=== PATIENT | female | born 1965 | race Caucasian/White ===

== ENCOUNTER 2019-12-13 15:35 | Inpatient (IN) | payer OTHER, SELFPAY ==
[2019-12-13 15:41] VITALS: BP 154/103; PULSE 113; RESP 16; TEMP 36.9; O2SAT 98; BMI 23.1
--- NOTE | 2019-12-13 17:29 | CT_ITS ---
EXAMINATION: CT ABDOMEN AND PELVIS WITH CONTRAST CLINICAL INFORMATION: Abdominal pain with purulent drainage from rectum. COMPARISON: None TECHNIQUE: Multidetector volumetric images were obtained from the superior aspect of the liver through the pubic symphysis following administration 85 mL of Omnipaque 350 intravenous contrast. Sagittal and coronal reformatted images were obtained on the technologist's workstation. Oral Contrast: No. This CT examination was performed using dose optimization techniques as appropriate, variously including the following: *Automated exposure control. *Adjustment of mA and/or kV according to patient size (this includes techniques or standardized protocols for targeted exams where dose is matched to indication/reason for exam; i.e. extremities or head). *Use of iterative reconstruction technique. DLP: 449 mGy-cm FINDINGS: LUNG BASES: Scarring is present at the lung bases. LIVER, GALLBLADDER, AND BILIARY TREE: The liver is normal in size, shape, and attenuation. Small cysts are noted in the left lobe of the liver. No worrisome solid focal hepatic lesion or biliary ductal dilatation is present. The gallbladder is unremarkable with no evidence of radiopaque gallstones, gallbladder wall thickening, or obvious pericholecystic inflammatory changes. PANCREAS: Unremarkable. SPLEEN: Unremarkable. ADRENAL GLANDS: There is a small 8.7 mm nodule involving the left adrenal gland without change. KIDNEYS AND URETERS: The kidneys are normal in size, shape, and attenuation. Tiny renal cysts are present. No hydronephrosis, hydroureter, or calculi seen. No perinephric stranding. BLADDER: Unremarkable. GASTROINTESTINAL TRACT: The rectum is significantly distended with stool when compared to the prior study and there is some inflammatory changes around the rectum suggesting possible stercoral colitis. No perirectal abscess or fistula is seen. Large and small bowel are otherwise unremarkable. No evidence of appendicitis. ABDOMINAL WALL: No significant hernia is appreciated. LYMPH NODES: Normal. VASCULAR: Atherosclerotic plaque present in the aorta but no evidence of AAA. PELVIC VISCERA: Status post hysterectomy. OSSEOUS STRUCTURES: Unremarkable. IMPRESSION: 1. Since the prior study, the rectosigmoid now appears more distended with stool and there is some minimal inflammatory change around the rectum suggesting stercoral colitis. No evidence of a perirectal abscess or fistula. 2. Unchanged tiny liver and renal cysts. 3. Unchanged tiny left adrenal nodule. 4. Status post hysterectomy.
--- NOTE | 2019-12-13 17:32 | XR_ITS ---
EXAMINATION: XR CHEST CLINICAL INFORMATION: Abdominal pain COMPARISON: 11/15/2019 TECHNIQUE: Frontal view of the chest was obtained. FINDINGS: No focal consolidation, pulmonary edema, or pleural effusion. Stable cardiomediastinal silhouette. IMPRESSION: Unremarkable examination.
--- NOTE | 2019-12-13 17:32 | ECG_ITS ---
Test Reason : ABDOMINAL PAIN Blood Pressure : / mmHG Vent. Rate : 091 BPM Atrial Rate : 091 BPM P-R Int : 158 ms QRS Dur : 084 ms QT Int : 358 ms P-R-T Axes : 066 045 023 degrees QTc Int : 440 ms Normal sinus rhythm Normal ECG When compared with ECG of 15-NOV-2019 19:36, No significant change was found Referred By: Ibeth Peña Electronically Signed By:JOHN CRUZ MD
--- NOTE | 2019-12-13 18:01 | ED_ITS ---
HPI - Abdominal Pain General Chief Complaint: Abdominal Pain Stated Complaint: LOWER ABDOMINAL/ANAL PAIN S/P HEMORRHOIDECTOMY Time Seen by Provider: 12/13/19 17:29 Source: patient Mode of arrival: ambulatory Limitations: no limitations History of Present Illness HPI narrative: 54-year-old female presents with rectal pain, purulent drainage per rectum, abdominal pain, constipation without bowel movement since December 30, difficulty voiding, weakness, and anxiety. She reports having hemorrhoidectomy at [facility] on December 30, and states that she has not felt well since. She is having a difficult time eating and drinking, has 10/10 pain, and reports that she needs to stand to urinate. She does not describe chest pain or pressure, palpitations, shortness of breath, fevers, edema, falls or trauma. She does not report any rectal Or vaginal bleeding. MD elicited complaint: abdominal pain Pertinent past history: constipation Onset (ago): day(s) ( Twelve days) Pain Consistency: constant Location: RLQ, LLQ, L flank, R flank, suprapubic, pelvis, groin and other ( rectum) Severity: severe Pain scale (0-10): 10 Quality: cramping, aching, fullness and burning Exacerbating factors: movement Relieving factors: nothing Context: recent surgery/procedure ( hemorrhoidectomy) Associated symptoms: nausea, constipation and anorexia Related Data Home Medications Medication Instructions Recorded Confirmed amlodipine 5 mg tablet 5 mg PO DAILY 12/06/19 12/13/19 cyclobenzaprine 10 mg tablet 10 mg PO DAILY PRN 12/06/19 12/13/19 diazepam 5 mg tablet 5 mg PO NEEDED PRN 12/06/19 12/13/19 docusate sodium 100 mg capsule 100 mg PO BID PRN 12/06/19 12/13/19 oxycodone 5 mg tablet 5 mg PO NEEDED PRN 12/06/19 12/13/19 rosuvastatin 20 mg tablet 20 mg PO BEDTIME 12/06/19 12/13/19 sennosides 8.6 mg tablet 17.2 mg PO DAILY 12/06/19 12/13/19 sucralfate 1 gram tablet 1 g PO QID 12/06/19 12/13/19 sucralfate 1 tab PO QID 12/13/19 12/13/19 Allergies Allergy/AdvReac Type Severity Reaction Status Date / Time acetaminophen [From TYLENOL] Allergy Unknown GI BLEED Verified 12/13/19 19:19 diazepam [Valium] Allergy Unknown unknown Verified 12/06/19 09:16 NSAIDS (Non-Steroidal Allergy Unknown UNK Verified 12/13/19 19:19 Anti-Inflamma [NSAIDS (NON-STEROIDAL ANTI-INFLAMMA] Penicillins [PENICILLINS] Allergy Unknown DIFF Verified 12/13/19 19:19 BREATHING zolpidem [From AMBIEN] Allergy Unknown HALLUCINATI Verified 12/13/19 19:19 ONS Review of Systems Review of Systems Constitutional: positive fatigue and malaise No Weight loss, No Fever, No Chills, No Night Sweats ENT/Mouth: No Hearing loss, No Ear Pain, No Nasal Congestion, No Sinus Pain, No Hoarseness, No sore throat, No Rhinorrhea, No Swallowing Difficulty Eyes: No Eye Pain, No Swelling, No Redness, No Foreign Body, No Discharge, No Vision Changes Cardiovascular: No Chest Pain, No SOB, No Dyspnea on Exertion, No Orthopnea, No Edema, No Palpitations Respiratory: No Cough, No Sputum, No Wheezing, No Smoke Exposure, No Dyspnea Gastrointestinal: Positive Nausea, positive abdominal Pain, No Hematochezia, No Melena Genitourinary: constipation for 12 days, purulent rectal discharge, poor urinary flow, no irregular bleeding, No Hematuria, No Urinary Incontinence Musculoskeletal: No joint pain, No Myalgias, No Joint Swelling Skin: No Skin Lesions, No rash Neuro: positive Weakness, No Numbness, No Paresthesias, No Loss of Consciousness, No Dizziness, No Headache Psych: No Anxiety/Panic, No Depression, No SI/HI/AH/VH, No Social Issues, Heme/Lymph: No Bruising, No Bleeding,No Lymphadenopathy Endocrine: No Polyuria, No Polydipsia, No Temperature Intolerance Physical Exam Vital Signs: Vital Signs: Vital Signs Temp Pulse Resp BP Pulse Ox 12/13/19 22:00 98.7 F 85 16 127/74 98 12/13/19 20:00 97.8 F 88 16 117/84 100 12/13/19 19:33 12 12/13/19 19:10 98.6 F 88 14 139/81 98 12/13/19 15:41 98.5 F 113 H 16 154/103 H 98 Body Mass Index 23.1 Appearance: Alert. Oriented X3. moderate distress, 10/10 pain. Eyes: Pupils equal, round and reactive to light. ENT: Pharynx normal. Neck: Normal inspection. Neck supple. CVS: Normal heart rate and rhythm. Pulses normal. Respiratory: No respiratory distress. Breath sounds normal. Abdomen: hard, distended, tender to palpation diffusely. : Purulent drainage per rectum, sutures visible at the dentate line no bleeding noted tender to touch digital rectal exam not completed at this time secondary to pain Skin: pallor, Skin warm and dry. Normal skin color. Normal skin turgor. Extremities: No lower extremity edema. No lower extremity edema. Neuro: Oriented X 3. No motor deficit. No sensory deficit. Course Course Course Narrative: patient is 12 days postop for hemorrhoidectomy. Visual rectal exam completed, purulent drainage noted from rectum with visible sutures. digital exam was not completed at this time. Abdomen is distended, consistent with patient's report of not having a bowel movement for 12 days. Levaquin and Flagyl given, fluid resuscitation, CT scan of the abdomen is pending. Reevaluation(s) Reevaluation #1: EJ placed By this HIGH TENSION TESTER as she Is a poor IV start.. Time: 18:15 Reevaluation #2: CT scan shows colitis, no indication of abscess or free air in the pelvis, moderate fecal load where troponin is negative, lactic acid is 0.7. Discussed this case with hospitalist, plan of care is to admit for colitis, pain management. Time: 21:20 Consultations Consultation #1: Poppy Time: 21:20 MDM - Abdominal Pain Differential Diagnosis Differential diagnosis: Likely abdominal pain, bowel perforation, constipation, diverticulitis, mesenteric ischemia and small bowel obstruction Differential diagnosis narrative:: Rectal abscess, abdominal abscess Medical Records Attestation: I reviewed the patient's medical records. Lab Data Attestation: I reviewed the patient's lab results. Result diagrams: 12/13/19 18:26 12/13/19 18: Labs: Lab Results 12/13/19 12/13/19 12/13/19 Range/Units 18:26 18:26 18:27 WBC 6.9 (4.8-10.8) X10*3/uL RBC 3.41 L (4.20-5.50) X10*6/uL Hgb 8.5 L (12.0-16.0) g/dl Hct 27.2 L (37-47) % MCV 79.8 L (80-98) fL MCH 24.9 L (27.0-33.0) pg MCHC 31.3 (31.0-35.0) g/dl RDW 16.9 H (11.0-16.0) % Plt Count 484 H (160-400) X10*3/uL MPV 8.3 L (9.4-12.3) fL Immature Gran % (Auto) 0.3 (0.0-0.4) % Neut % (Auto) 52.7 (45-73) % Lymph % (Auto) 38.0 (20-40) % [place] % (Auto) 6.6 (2-11) % Eos % (Auto) 2.0 (0-4) % Baso % (Auto) 0.4 (0-2) % Lymph # (Auto) 2.6 (1.2-4.9) X10*3/uL [place] # (Auto) 0.5 (0.1-1.2) X10*3/uL Eos # (Auto) 0.1 (0.0-0.4) X10*3/uL Baso # (Auto) 0.0 (0.0-0.2) X10*3/uL Abs Immat Gran (auto) 0.02 (0.00-0.03) X10*3/uL Absolute Neuts (auto) 3.7 (2.0-8.3) X10*3/uL Absolute Nucleated RBC 0.000 (0.0-0.012) X10*3/uL Nucleated RBC % (auto) 0.0 (0.0-0.2) /100WBC PT 13.0 (10.8-13.0) SEC INR 1.1 (0.9-1.1) Sodium (135-145) mmol/L Potassium (3.3-5.1) mmol/l Chloride (96-108) mmol/L Carbon Dioxide (22-29) mmol/L Anion Gap (12-20) BUN (9-16) mg/dL Creatinine (0.5-1.4) mg/dL Estim Creat Clear Calc Estimated GFR Random Glucose (60-115) mg/dL Lactic Acid (0.5-2.0) mmol/L Calcium 8.6 (8.4-10.2) mg/dL Magnesium 2.2 (1.6-2.6) mg/dL Total Bilirubin (0.0-1.0) mg/dL Direct Bilirubin (0.0-0.5) mg/dL AST (5-31) U/L ALT (0-31) U/L Alkaline Phosphatase (39-117) U/L Troponin I High Sens (<3.5-17.0) ng/L Total Protein (6.5-8.0) g/dL Albumin (3.5-5.0) g/dL Lipase (8-78) U/L 12/13/19 12/13/19 12/13/19 Range/Units 18:27 18:27 18:27 WBC (4.8-10.8) X10*3/uL RBC (4.20-5.50) X10*6/uL Hgb (12.0-16.0) g/dl Hct (37-47) % MCV (80-98) fL MCH (27.0-33.0) pg MCHC (31.0-35.0) g/dl RDW (11.0-16.0) % Plt Count (160-400) X10*3/uL MPV (9.4-12.3) fL Immature Gran % (Auto) (0.0-0.4) % Neut % (Auto) (45-73) % Lymph % (Auto) (20-40) % [place] % (Auto) (2-11) % Eos % (Auto) (0-4) % Baso % (Auto) (0-2) % Lymph # (Auto) (1.2-4.9) X10*3/uL [place] # (Auto) (0.1-1.2) X10*3/uL Eos # (Auto) (0.0-0.4) X10*3/uL Baso # (Auto) (0.0-0.2) X10*3/uL Abs Immat Gran (auto) (0.00-0.03) X10*3/uL Absolute Neuts (auto) (2.0-8.3) X10*3/uL Absolute Nucleated RBC (0.0-0.012) X10*3/uL Nucleated RBC % (auto) (0.0-0.2) /100WBC PT (10.8-13.0) SEC INR (0.9-1.1) Sodium 141 (135-145) mmol/L Potassium 3.7 (3.3-5.1) mmol/l Chloride 104 (96-108) mmol/L Carbon Dioxide 26 (22-29) mmol/L Anion Gap 15 (12-20) BUN 14 (9-16) mg/dL Creatinine 0.73 (0.5-1.4) mg/dL Estim Creat Clear Calc 74.3 Estimated GFR > 60 Random Glucose 93 (60-115) mg/dL Lactic Acid 0.7 (0.5-2.0) mmol/L Calcium 8.5 (8.4-10.2) mg/dL Magnesium (1.6-2.6) mg/dL Total Bilirubin 0.2 (0.0-1.0) mg/dL Direct Bilirubin < 0.2 (0.0-0.5) mg/dL AST 20 (5-31) U/L ALT 16 (0-31) U/L Alkaline Phosphatase 104 (39-117) U/L Troponin I High Sens < 3.5 (<3.5-17.0) ng/L Total Protein 6.5 (6.5-8.0) g/dL Albumin 3.8 (3.5-5.0) g/dL Lipase 27 (8-78) U/L Imaging Data CT scan - abdomen: Attestation: I personally reviewed and interpreted this imaging study as follows: Radiologist's impression: FINDINGS: LUNG BASES: Scarring is present at the lung bases. LIVER, GALLBLADDER, AND BILIARY TREE: The liver is normal in size, shape, and attenuation. Small cysts are noted in the left lobe of the liver. No worrisome solid focal hepatic lesion or biliary ductal dilatation is present. The gallbladder is unremarkable with no evidence of radiopaque gallstones, gallbladder wall thickening, or obvious pericholecystic inflammatory changes. PANCREAS: Unremarkable. SPLEEN: Unremarkable. ADRENAL GLANDS: There is a small 8.7 mm nodule involving the left adrenal gland without change. KIDNEYS AND URETERS: The kidneys are normal in size, shape, and attenuation. Tiny renal cysts are present. No hydronephrosis, hydroureter, or calculi seen. No perinephric stranding. BLADDER: Unremarkable. GASTROINTESTINAL TRACT: The rectum is significantly distended with stool when compared to the prior study and there is some inflammatory changes around the rectum suggesting possible stercoral colitis. No perirectal abscess or fistula is seen. Large and small bowel are otherwise unremarkable. No evidence of appendicitis. ABDOMINAL WALL: No significant hernia is appreciated. LYMPH NODES: Normal. VASCULAR: Atherosclerotic plaque present in the aorta but no evidence of AAA. PELVIC VISCERA: Status post hysterectomy. OSSEOUS STRUCTURES: Unremarkable. IMPRESSION: 1. Since the prior study, the rectosigmoid now appears more distended with stool and there is some minimal inflammatory change around the rectum suggesting stercoral colitis. No evidence of a perirectal abscess or fistula. 2. Unchanged tiny liver and renal cysts. 3. Unchanged tiny left adrenal nodule. 4. Status post hysterectomy. Chest x-ray: Attestation: I personally reviewed and interpreted this imaging study as f rayna: Radiologist's impression: TECHNIQUE: Frontal view of the chest was obtained. FINDINGS: No focal consolidation, pulmonary edema, or pleural effusion. Stable cardiomediastinal silhouette. IMPRESSION: Unremarkable examination. ECG Data Attestation: I personally reviewed and interpreted this ECG as follows: ECG interpretation date: 12/13/19 ECG interpretation time: 17:57 Prior ECG tracings: available for review Interpretation: Vent. Rate : 091 BPM Atrial Rate : 091 BPM P-R Int : 158 ms QRS Dur : 084 ms QT Int : 358 ms P-R-T Axes : 066 045 023 degrees QTc Int : 440 ms Normal sinus rhythm Normal ECG When compared with ECG of 15-NOV-2019 19:36, No significant change was found Critical Care Time Critical Care Time Critical Care Time: Yes Total Critical Care Time: 60 Attestation: I have personally provided critical care time exclusive of time spent on separately billable procedures. Time includes review of laboratory data, radiology results, discussion with consultants, and monitoring for potential decompensation. Interventions were performed as documented. Discharge Plan Discharge Clinical Impression: Colitis Constipation Qualifiers: Constipation type: other constipation type Qualified Code(s): K59.09 - Other constipation Patient Disposition: Admitted As Inpatient [facility] Past Medical History Attestation statement: The following information was validated with the patient. Medical History Adhesion, postoperative Duodenal ulcer Surgical History H/O cardiac catheterization H/O cervical spinal arthrodesis H/O colonoscopy H/O esophagogastroduodenoscopy H/O hemorrhoidectomy History of appendectomy History of heart artery stent Family History Family History (Updated 12/12/19 @ 17:16 by URIEL Lazo) Father CAD (coronary artery disease) Lung cancer NIDDY (non-insulin dependent diabetes mellitus in young) Mother No problems noted. Brother Myocardial infarction Social History Social History Alcohol intake: never Smoking Status: Current every day smoker Use of substances other than those prescribed or required for medical reasons: No Advance Directives: No Advance Directives Information Provided: Yes
[2019-12-13 18:37] LABS: MANUAL DIFF FLAG NO
[2019-12-13 18:39] LABS: Basophils Percent Auto 0.4 % (0-2); Eosinophils Absolute Auto 0.1 X10*3/uL (0.0-0.4); Hematocrit 27.2 % (37-47); Hemoglobin 8.5 g/dl (12.0-16.0); Imm Gran Abs Auto 0.02 X10*3/uL (0.00-0.03); Imm Gran Pct Auto 0.3 % (0.0-0.4); Lymphocytes Absolute Auto 2.6 X10*3/uL (1.2-4.9); Mean Corpuscular HGB Conc 31.3 g/dl (31.0-35.0); Mean Corpuscular Hemoglobin 24.9 pg (27.0-33.0); Mean Corpuscular Volume 79.8 fL (80-98); Mean Platelet Volume 8.3 fL (9.4-12.3); Monocytes Absolute Auto 0.5 X10*3/uL (0.1-1.2); Monocytes Percent Auto 6.6 % (2-11); Neutrophils Absolute Auto 3.7 X10*3/uL (2.0-8.3); Neutrophils Percent Auto 52.7 % (45-73); Platelet Count 484 X10*3/uL (160-400); Red Blood Count 3.41 X10*6/uL (4.20-5.50); Red Cell Distribution Width 16.9 % (11.0-16.0); White Blood Count 6.9 X10*3/uL (4.8-10.8)
[2019-12-13 18:47] LABS: INTERNATIONAL NORM RATIO 1.1 (0.9-1.1)
[2019-12-13 19:01] LABS: Lactic Acid 0.7 mmol/L (0.5-2.0)
[2019-12-13 19:05] LABS: Alanine Aminotransferase 16 U/L (0-31); Albumin Level 3.8 g/dL (3.5-5.0); Alkaline Phosphatase 104 U/L (39-117); Anion Gap 15 (12-20); Aspartate Amino Transferase 20 U/L (5-31); Bilirubin Direct < 0.2 mg/dL (0.0-0.5); Bilirubin Total 0.2 mg/dL (0.0-1.0); Blood Urea Nitrogen 14 mg/dL (9-16); Calcium 8.5 mg/dL (8.4-10.2); Carbon Dioxide 26 mmol/L (22-29); Chloride 104 mmol/L (96-108); Creatinine Clr Calc Pharmacy 74.3; Estimated Glomerular Filt Rate > 60; Glucose Random 93 mg/dL (60-115); Lipase 27 U/L (8-78); Potassium 3.7 mmol/l (3.3-5.1); Sodium 141 mmol/L (135-145); Total Protein 6.5 g/dL (6.5-8.0)
[2019-12-13 19:08] LABS: Troponin-I High Sensitivity < 3.5 ng/L (<3.5-17.0)
[2019-12-13 19:10] VITALS: BP 139/81; PULSE 88; RESP 14; TEMP 37; O2SAT 98
[2019-12-13 19:15] LABS: Calcium 8.6 mg/dL (8.4-10.2); Magnesium 2.2 mg/dL (1.6-2.6)
[2019-12-13 19:33] VITALS: RESP 12
[2019-12-13] MEDS: Morphine Sulfate 4 MG/ML CARTRIDGE IVPUSH (19:33)
[2019-12-13] MEDS: ondansetron HCL 4 MG/2 ML VIAL IVPUSH (19:34)
[2019-12-13] MEDS: 0.9 % Sodium Chloride 1,000 ML 999 ML IVCONT (19:35)
[2019-12-13] MEDS: metroNIDAZOLE/NS 500 MG/100 ML PIGGYBACK 100 MG IV (19:36)
[2019-12-13 20:00] VITALS: BP 117/84; PULSE 88; RESP 16; TEMP 36.6; O2SAT 100
[2019-12-13] MEDS: iohexoL 350 MG/ML 100 ML INFUS..BTL IV (20:02)
[2019-12-13] MEDS: levoFLOXacin/D5W 500 MG/100 ML PIGGYBACK 100 MG IV (20:49)
--- NOTE | 2019-12-13 20:53 | PC.NURSE ---
IV ANTIBIOTICS HUNG PER ORDER -FLOAT NURSE
--- NOTE | 2019-12-13 21:53 | PC.NURSE ---
ej placed by Ibeth DENIS at 1700
[2019-12-13 22:00] VITALS: BP 127/74; PULSE 85; RESP 16; TEMP 37.1; O2SAT 98
--- NOTE | 2019-12-13 23:40 | PC.NURSE ---
Report taken from Shyanne, ousmane RN resuming care. Pt requesting medication for pain, provider aware.
[2019-12-14] VITALS (10 sets, daily range): BP systolic 90–125; BP diastolic 54–78; PULSE 82–96; RESP 16–19; TEMP 35.9–37; O2SAT 97–100
[2019-12-14] MEDS: Lidocaine HCl 2 % Urojet 10 ML JEL.PF.APP TOPICAL (00:02)
[2019-12-14] MEDS: Morphine Sulfate 4 MG/ML CARTRIDGE IVPUSH ×4 (00:06→18:02)
[2019-12-14] MEDS: Sodium Phosphate,Mono-Dibasic 133 ML ENEMA PR (00:07)
--- NOTE | 2019-12-14 00:12 | PM.IMHP ---
History of Present Illness Date of Service: 12/13/19 Chief Complaint: Constipation this is a 54-year-old female with an extensive past medical history who presents to the hospital with complaints of constipation. Patient underwent hemorrhoidectomy on November 30 on ever since has not moved her bowels. She came today because she started having incontinence of the bowel and bladder. Patient reports that that she has only been able to urinate well standing and unable to sit or bend at all. She has been having bowel distension and lower abdomen pain some nausea with no vomiting, no fever no chills. Patient otherwise denies any headache, change in vision, chest pain, shortness of breath, no urinary dysuria urgency or frequency. She has no lower extremity edema. On arrival to the ED patient hemodynamically stable with temp of 98.5?, pulse rate of 113, blood pressure 154 wound at 3, respiratory rate of 16, oxygen of 98% on room air labs are significan for hemoglobin of 8.5, MCV of 79.8,(dropped from 10.3 on 11/15/2019), labs otherwise unremarkable CT abdomen pelvis shows rectosigmoid appears more distended with stool and there were some minimal inflammatory change around the rectum suggesting stercoral colitis. No evidence of perirectal abscess or fistula. Patient will be admitted for further management. 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 oncologist being set up but hasn't seen anyone. was told it was terminal and hence came here. little over 2 years ago was diagnosed , incidental finding. CAD status post NH ([address]), CVA PSH- appendectomy, tonsillectomy, hysterectomy, hernia repair. plates in neck s/p fusions SH- no hisotry of alcohol , socal somking but no more. no illicit drugs FH- father had cancer heart disease at 58. Review of Systems Review of Systems: Yes all other systems are reviewed and are negative [facility] Medical History Adhesion, postoperative Duodenal ulcer Family History Father CAD (coronary artery disease) Lung cancer NIDDY (non-insulin dependent diabetes mellitus in young) Mother No problems noted. Brother Myocardial infarction Surgical History H/O cardiac catheterization H/O cervical spinal arthrodesis H/O colonoscopy H/O esophagogastroduodenoscopy H/O hemorrhoidectomy History of appendectomy History of heart artery stent Social History Household Members: Significant Other Housing: House Do you presently have visiting nurse or other home services: No Alcohol intake: never Smoking Status: Current every day smoker Use of substances other than those prescribed or required for medical reasons: Unknown Have you been hit, kicked, punched, or otherwise hurt by someone within the past year? If so, by whom?: No Do you feel safe in your current relationship?: No Is there a partner from a previous relationship who is making you feel unsafe now?: No Are you made to feel afraid or neglected: No Advance Directives: No Advance Directives Information Provided: Yes Do you have thoughts of harming others: None Do you have a plan to hurt others: No Plan Recently lost weight without trying: No Meds Allergies Allergy/AdvReac Type Severity Reaction Status Date / Time Penicillins Allergy Intermediate Swelling Verified 12/14/19 06:15 acetaminophen [From Tylenol] AdvReac Gastrointestinal Verified 12/14/19 06:18 Upset diazepam [From Valium] AdvReac Drowsy Verified 12/14/19 06:18 Home Medications Medication Instructions Recorded Confirmed Type amlodipine 5 mg tablet 5 mg PO DAILY 12/06/19 12/13/19 History cyclobenzaprine 10 mg tablet 10 mg PO DAILY PRN 12/06/19 12/13/19 History diazepam 5 mg tablet 5 mg PO NEEDED PRN 12/06/19 12/13/19 History docusate sodium 100 mg capsule 100 mg PO BID PRN 12/06/19 12/13/19 History oxycodone 5 mg tablet 5 mg PO NEEDED PRN 12/06/19 12/13/19 History rosuvastatin 20 mg tablet 20 mg PO BEDTIME 12/06/19 12/13/19 History sennosides 8.6 mg tablet 17.2 mg PO DAILY 12/06/19 12/13/19 History sucralfate 1 gram tablet 1 g PO QID 12/06/19 12/13/19 History sucralfate 1 tab PO QID 12/13/19 12/13/19 History Physical Exam Vital Signs and Narrative: Vital Signs: Last Vital Signs Temp 98.7 F 12/13/19 22:00 Pulse 85 12/13/19 22:00 Resp 16 12/13/19 22:00 BP 127/74 12/13/19 22:00 Pulse Ox 98 12/13/19 22:00 Body Mass Index 23.1 Results Labs Labs: Laboratory Tests 12/13/19 12/13/19 12/13/19 18:26 18:26 18:27 WBC 6.9 RBC 3.41 L Hgb 8.5 L Hct 27.2 L MCV 79.8 L MCH 24.9 L MCHC 31.3 RDW 16.9 H Plt Count 484 H MPV 8.3 L Immature Gran % (Auto) 0.3 Neut % (Auto) 52.7 Lymph % (Auto) 38.0 [place] % (Auto) 6.6 Eos % (Auto) 2.0 Baso % (Auto) 0.4 Lymph # (Auto) 2.6 [place] # (Auto) 0.5 Eos # (Auto) 0.1 Baso # (Auto) 0.0 Abs Immat Gran (auto) 0.02 Absolute Neuts (auto) 3.7 Absolute Nucleated RBC 0.000 Nucleated RBC % (auto) 0.0 PT 13.0 INR 1.1 Sodium Potassium Chloride Carbon Dioxide Anion Gap BUN Creatinine Estim Creat Clear Calc Estimated GFR Random Glucose Lactic Acid Calcium 8.6 Magnesium 2.2 Total Bilirubin Direct Bilirubin AST ALT Alkaline Phosphatase Troponin I High Sens Total Protein Albumin Lipase 12/13/19 12/13/19 12/13/19 18:27 18:27 18:27 WBC RBC Hgb Hct MCV MCH MCHC RDW Plt Count MPV Immature Gran % (Auto) Neut % (Auto) Lymph % (Auto) [place] % (Auto) Eos % (Auto) Baso % (Auto) Lymph # (Auto) [place] # (Auto) Eos # (Auto) Baso # (Auto) Abs Immat Gran (auto) Absolute Neuts (auto) Absolute Nucleated RBC Nucleated RBC % (auto) PT INR Sodium 141 Potassium 3.7 Chloride 104 Carbon Dioxide 26 Anion Gap 15 BUN 14 Creatinine 0.73 Estim Creat Clear Calc 74.3 Estimated GFR > 60 Random Glucose 93 Lactic Acid 0.7 Calcium 8.5 Magnesium Total Bilirubin 0.2 Direct Bilirubin < 0.2 AST 20 ALT 16 Alkaline Phosphatase 104 Troponin I High Sens < 3.5 Total Protein 6.5 Albumin 3.[address] scan - pelvis: Radiologist's impression: IMPRESSION: 1. Since the prior study, the rectosigmoid now appears more distended with stool and there is some minimal inflammatory change around the rectum suggesting stercoral colitis. No evidence of a perirectal abscess or fistula. 2. Unchanged tiny liver and renal cysts. 3. Unchanged tiny left adrenal nodule. 4. Status post hysterectomy.
--- NOTE | 2019-12-14 00:23 | PC.NURSE ---
Pt medicated per EMAR, fleet enema given per EMAR. Pt sitting upright on the commode, continue to monitor.
[2019-12-14] MEDS: LORazepam 2 MG/ML VIAL 0.5 MG IVPUSH (01:34)
--- NOTE | 2019-12-14 01:48 | PC.NURSE ---
Addendum entered by Julita Elise 12/14/19 02:00: Pt requesting to lay on an icepack due to pain in rectum. Icepack wrapped in a pillowcase provided to pt. Pt provided with mesh underwear, remains incontinent of yellow colored drainage from rectum. Original Note: Pt extremely restless, up and down constantly to the commode however pt remains unable to move her stools. This RN advised pt to stop straining and to try to rest. Pt medicated with Ativan per EMAR, assisted into POC, warm blankets provided. VSS. Pt awaiting transport to floor.
--- NOTE | 2019-12-14 01:51 | PC.NURSE ---
VS: 125/74, HR 87, RR 16. This RN unable to enter vitals into worklist. The command center was notified of error.
--- NOTE | 2019-12-14 01:57 | PC.NURSE ---
This RN calling [facility] to give report, RN unable to take report at this time.
--- NOTE | 2019-12-14 02:07 | PC.NURSE ---
Report given to [facility] RN. Pt being prepared for transport to floor.
[2019-12-14] MEDS: 0.9 % Sodium Chloride Flush 3 ML SYRINGE IVFLUSH ×3 (03:35→22:19)
[2019-12-14] MEDS: Enoxaparin Sodium 40 MG/0.4 ML SYRINGE SUBCUT (05:54)
[2019-12-14] MEDS: Lactated Ringers 1,000 ML 100 ML IVCONT ×2 (07:25→17:25)
[2019-12-14] MEDS: metroNIDAZOLE/NS 500 MG/100 ML PIGGYBACK 100 MG IV (07:25)
[2019-12-14] MEDS: Sennosides 8.6 MG TABLET 17.2 MG PO (07:31)
[2019-12-14] MEDS: amLODIPine Besylate 5 MG TABLET PO (07:31)
[2019-12-14] MEDS: Milk of Magnesia 30 ML ORAL.SUSP PO (07:32)
[2019-12-14] MEDS: Cyclobenzaprine HCl 10 MG TABLET PO (07:32)
[2019-12-14] MEDS: Sucralfate 1 GM TABLET PO ×4 (07:32→20:55)
[2019-12-14] MEDS: Docusate Sodium 100 MG CAPSULE PO ×2 (07:32→20:56)
[2019-12-14 07:55] LABS: MANUAL DIFF FLAG NO
[2019-12-14 08:08] LABS: Basophils Percent Auto 0.5 % (0-2); Eosinophils Absolute Auto 0.1 X10*3/uL (0.0-0.4); Eosinophils Percent Auto 1.8 % (0-4); Hematocrit 26.1 % (37-47); Hemoglobin 8.2 g/dl (12.0-16.0); Imm Gran Abs Auto 0.02 X10*3/uL (0.00-0.03); Imm Gran Pct Auto 0.4 % (0.0-0.4); Lymphocytes Absolute Auto 1.7 X10*3/uL (1.2-4.9); Lymphocytes Percent Auto 29.7 % (20-40); Mean Corpuscular HGB Conc 31.4 g/dl (31.0-35.0); Mean Corpuscular Volume 79.6 fL (80-98); Mean Platelet Volume 8.7 fL (9.4-12.3); Monocytes Absolute Auto 0.4 X10*3/uL (0.1-1.2); Monocytes Percent Auto 6.7 % (2-11); Neutrophils Absolute Auto 3.5 X10*3/uL (2.0-8.3); Neutrophils Percent Auto 60.9 % (45-73); Platelet Count 482 X10*3/uL (160-400); Red Blood Count 3.28 X10*6/uL (4.20-5.50); Red Cell Distribution Width 16.9 % (11.0-16.0); White Blood Count 5.7 X10*3/uL (4.8-10.8)
--- NOTE | 2019-12-14 08:22 | PM.CNGS ---
History of Present Illness Consult details Consult date: 12/14/19 Reason for consult: other (Sepsis status post hemorrhoidectomy) Requesting physician: Iva Mcwilliams Narrative: 54-year-old female patient originally from [place] presenting approximately 1 month status post hemorrhoidectomy performed at an outside institution presenting with increased pain and purulence drainage. Patient reports a previous hemorrhoidectomy performed many years ago while in [place]. She subsequently developed increased symptoms and underwent the hemorrhoidectomy last month. She reports persistent pain following the surgery as well as difficulty moving her bowels. She complains of abdominal distension due to this. She subsequently presented to the emergency department for further evaluation on 12/12/2019. She was noted to have purulence drainage from the rectum. CT of the abdomen and pelvis performed yesterday revealed the rectum to be full of stool with some minimal inflammatory changes suggestive of stercoral colitis. Review of Systems Constitutional: Constitutional: Denies chills, Denies fever(s) and Denies poor appetite Cardiovascular: Cardiovascular: Denies chest pain, Denies rapid heart rate, Denies palpitations and Denies slow heart rate Respiratory: Respiratory: Denies chest congestion, Denies cough, Denies pain on inspiration and Denies wheezing Gastrointestinal: Gastrointestinal: Denies abdominal pain, Reports bloating, Reports tenesmus, Reports constipation, Denies diarrhea and Denies vomiting Musculoskeletal: Musculoskeletal: Denies no additional musculoskeletal complaints Neurologic: Denies confusion Psychiatric: Psychiatric: Denies anxiety, Denies confusion and Denies depression Endocrine: Endocrine: Denies palpitations Hematologic/Lymphatic: Hematologic/Lymphatic: Denies easy bleeding, Denies easy bruising and Denies lymphadenopathy Allergic/Immunologic: Allergic/Immunologic: Denies wheezing [facility] Past Medical History Medical History (Updated 12/14/19 @ 08:31 by Etienne Ayala MD) Adhesion, postoperative Carotid stenosis Chronic idiopathic constipation Duodenal ulcer Erosive esophagitis GERD (gastroesophageal reflux disease) History of CVA (cerebrovascular accident) Myocardial infarction Non Hodgkin's lymphoma Family History Family History Father CAD (coronary artery disease) Lung cancer NIDDY (non-insulin dependent diabetes mellitus in young) Mother No problems noted. Brother Myocardial infarction Surgical History Surgical History H/O cardiac catheterization H/O cervical spinal arthrodesis H/O colonoscopy H/O esophagogastroduodenoscopy H/O hemorrhoidectomy History of appendectomy History of heart artery stent Social History Social History Household Members: Significant Other Housing: House Do you presently have visiting nurse or other home services: No Alcohol intake: never Smoking Status: Current every day smoker Use of substances other than those prescribed or required for medical reasons: Unknown Have you been hit, kicked, punched, or otherwise hurt by someone within the past year? If so, by whom?: No Do you feel safe in your current relationship?: No Is there a partner from a previous relationship who is making you feel unsafe now?: No Are you made to feel afraid or neglected: No Advance Directives: No Advance Directives Information Provided: Yes Do you have thoughts of harming others: None Do you have a plan to hurt others: No Plan Recently lost weight without trying: No Meds Allergies Allergy/AdvReac Type Severity Reaction Status Date / Time Penicillins Allergy Intermediate Swelling Verified 12/14/19 06:15 acetaminophen [From Tylenol] AdvReac Gastrointestinal Verified 12/14/19 06:18 Upset diazepam [From Valium] AdvReac Drowsy Verified 12/14/19 06:18 Home Medications Medication Instructions Recorded Confirmed Type amlodipine 5 mg tablet 5 mg PO DAILY 12/06/19 12/13/19 History cyclobenzaprine 10 mg tablet 10 mg PO DAILY PRN 12/06/19 12/13/19 History diazepam 5 mg tablet 5 mg PO NEEDED PRN 12/06/19 12/13/19 History docusate sodium 100 mg capsule 100 mg PO BID PRN 12/06/19 12/13/19 History oxycodone 5 mg tablet 5 mg PO NEEDED PRN 12/06/19 12/13/19 History rosuvastatin 20 mg tablet 20 mg PO BEDTIME 12/06/19 12/13/19 History sennosides 8.6 mg tablet 17.2 mg PO DAILY 12/06/19 12/13/19 History sucralfate 1 gram tablet 1 g PO QID 12/06/19 12/13/19 History sucralfate 1 tab PO QID 12/13/19 12/13/19 History Physical Exam Vital Signs: Vital Signs: Vital Signs Temp Pulse Resp BP Pulse Ox 12/14/19 07:31 82 100/78 12/14/19 07:18 97.8 F 82 16 100/78 98 12/14/19 03:36 96.6 F L 96 19 124/69 100 12/14/19 01:55 87 16 125/74 12/13/19 22:00 98.7 F 85 16 127/74 98 12/13/19 20:00 97.8 F 88 16 117/84 100 12/13/19 19:33 12 12/13/19 19:10 98.6 F 88 14 139/81 98 12/13/19 15:41 98.5 F 113 H 16 154/103 H 98 Body Mass Index 23.1 Const: General: No confusion Orientation/consciousness: No confusion Eyes: Other: Normal extraocular muscles, sclera nonicteric Resp: Other: breathing comfortably on room air, no respiratory distress, able to speak in complete sentences Cardio: Jugular venous distension: no JVD Rate: regular rate Rhythm: regular rhythm GI: Other: soft, mild distention, nontender, normal bowel sounds, rectal examination reveals suture material suggestive of polyglycolic suture. No erythema is noted to suggest an abscess. Expected surrounding inflammatory changes consistent with prior recent surgery. No thrombosed hemorrhoid, no perirectal abscess, tender to palpation. Skin: Other: Warm and dry, no rash Neuro: Other: alert and oriented x3, no motor or sensory weakness General: No confusion Extrem: General: Yes no clubbing, cyanosis or edema Results Labs Result diagrams: 12/14/19 07:11 12/14/19 07:11 Labs: Abnormal lab results 12/13/19 12/14/19 Range/Units 18:26 07:11 RBC 3.41 L 3.28 L (4.20-5.50) X10*6/uL Hgb 8.5 L 8.2 L (12.0-16.0) g/dl Hct 27.2 L 26.1 L (37-47) % MCV 79.8 L 79.6 L (80-98) fL MCH 24.9 L 25.0 L (27.0-33.0) pg RDW 16.9 H 16.9 H (11.0-16.0) % Plt Count 484 H 482 H (160-400) X10*3/uL MPV 8.3 L 8.7 L (9.4-12.3) fL Short CBC 12/13/19 12/14/19 Range/Units 18:26 07:11 WBC 6.9 5.7 (4.8-10.8) X10*3/uL Hgb 8.5 L 8.2 L (12.0-16.0) g/dl Hct 27.2 L 26.1 L (37-47) % Plt Count 484 H 482 H (160-400) X10*3/uL BMP 12/13/19 12/13/19 18:26 18:27 Sodium 141 Potassium 3.7 Chloride 104 Carbon Dioxide 26 BUN 14 Creatinine 0.73 Calcium 8.6 8.5 Liver Function 12/13/19 Range/Units 18:27 Total Bilirubin 0.2 (0.0-1.0) mg/dL Direct Bilirubin < 0.2 (0.0-0.5) mg/dL AST 20 (5-31) U/L ALT 16 (0-31) U/L Alkaline Phosphatase 104 (39-117) U/L Albumin 3.8 (3.5-5.0) g/dL All other labs normal. Assessment and Plan (1) Constipation: Qualifiers: Constipation type: other constipation type Qualified Code(s): K59.09 - Other constipation Status: Acute The patient presents with a 1 month following repeat hemorrhoidectomy complicated by persistent constipation. CT of the abdomen and pelvis confirms a large stool burden within the rectum. The majority of the patient's symptoms appear to be related to this rather than the hemorrhoidectomy. She is tender as expected following hemorrhoidectomy. I would recommend Sitz baths to least 4-6 times daily. I agree with the stool softener and milk of magnesia. Oral mineral oil or Barb M0 may help with the passage of stool. (2) Colitis: Status: Acute Colitis due to constipation as noted above
[2019-12-14 08:23] LABS: Anion Gap 13 (12-20); Blood Urea Nitrogen 9 mg/dL (9-16); Calcium 8.3 mg/dL (8.4-10.2); Carbon Dioxide 27 mmol/L (22-29); Chloride 106 mmol/L (96-108); Creatinine Clr Calc Pharmacy 79.7; Estimated Glomerular Filt Rate > 60; Glucose Random 90 mg/dL (60-115); Potassium 3.7 mmol/l (3.3-5.1); Sodium 142 mmol/L (135-145)
[2019-12-14 08:44] LABS: Ferritin 24 ng/mL (10-250)
[2019-12-14 13:22] LABS: OBS Int Ctl Valid YES; OBS1 NEG (NEG)
[2019-12-14] MEDS: diazePAM 5 MG TABLET PO (13:36)
--- NOTE | 2019-12-14 15:12 | HO.PM.IMPN ---
Subjective Subjective Date of Service: 12/14/19 Interval History: seen and examined this Am reports constipation pain better reported later by RN -- had BM Review of Systems General - no fevers or chills Cardiovascular - no chest pain Respiratory - no shortness of breath or cough Abdominal- +abd pain, constipation Physical Exam Vital Signs: Vital Signs: Vital Signs Temp Pulse Resp BP Pulse Ox 12/14/19 12:06 18 12/14/19 11:31 98.0 F 84 18 107/74 98 12/14/19 07:31 82 100/78 12/14/19 07:18 97.8 F 82 16 100/78 98 12/14/19 03:36 96.6 F L 96 19 124/69 100 12/14/19 01:55 87 16 125/74 12/13/19 22:00 98.7 F 85 16 127/74 98 12/13/19 20:00 97.8 F 88 16 117/84 100 12/13/19 19:33 12 12/13/19 19:10 98.6 F 88 14 139/81 98 12/13/19 15:41 98.5 F 113 H 16 154/103 H 98 Body Mass Index 23.1 General - no acute distress, appears comfortable Cardiovascular - regular rate and rhythm, S1-S2 Lungs - normal respiratory effort, clear to auscultation bilaterally, no wheezing Abdomen - mild diffuse tenderness without rebound or guarding Extremities - no edema bilaterally Neuro - awake and alert, no focal deficits Objective Data Current Medications Generic Name Dose Route Start Last Admin Trade Name Freq PRN Reason Stop Dose Admin Acetaminophen 650 mg 12/14/19 03:21 Acetaminophen 325 Mg Tablet PO Q6H PRN Pain, Mild (Pain Scale 1-3) Amlodipine Besylate 5 mg 12/14/19 09:00 12/14/19 07:31 Amlodipine Besylate 5 Mg Tablet PO 5 mg DAILY GRANT Administration Protocol Cyclobenzaprine HCl 10 mg 12/14/19 03:21 12/14/19 07:32 Cyclobenzaprine Hcl 10 Mg Tablet PO 10 mg DAILY PRN Administration Muscle Spasm Diazepam 5 mg 12/14/19 03:21 12/14/19 13:36 Diazepam 5 Mg Tablet PO 5 mg TID PRN Administration Anxiety Docusate Sodium 100 mg 12/14/19 09:00 12/14/19 07:32 Docusate Sodium 100 Mg Capsule PO 100 mg BID GRANT Administration Docusate Sodium 100 mg 12/14/19 03:21 Docusate Sodium 100 Mg Capsule PO BID PRN Constipation Enoxaparin Sodium 40 mg 12/14/19 03:21 12/14/19 05:54 Enoxaparin Sodium 40 Mg/0.4 Ml Syringe SUBCUT 40 mg Q12H GRANT Administration Lactated Ringer's 1,000 mls @ 100 mls/hr 12/14/19 06:45 12/14/19 07:25 Lr IVCONT 100 mls/hr .Q10H GRANT Administration Magnesium Hydroxide 30 ml 12/14/19 09:00 12/14/19 07:32 Milk Of Magnesia 30 Ml Oral.Susp PO 30 ml DAILY GRANT Administration Morphine Sulfate 4 mg 12/14/19 03:21 12/14/19 12:06 Morphine Sulfate 4 Mg/Ml Cartridge IVPUSH 4 mg Q4H PRN Administration Pain, Severe (Pain Scale 7-10) Ondansetron HCl 4 mg 12/14/19 03:21 Ondansetron Hcl 4 Mg/2 Ml Vial IVPUSH Q8H PRN Nausea and Vomiting Senna 17.2 mg 12/14/19 09:00 12/14/19 07:31 Sennosides 8.6 Mg Tablet PO 17.2 mg DAILY GRANT Administration Sodium Chloride 3 ml 12/14/19 03:21 12/14/19 07:25 0.9 % Sodium Chloride Flush 3 Ml Syringe IVFLUSH 3 ml QSHIFT GRANT Administration Sucralfate 1 gm 12/14/19 09:00 12/14/19 12:05 Sucralfate 1 Gm Tablet PO 1 gm QID GRANT Administration Labs CBC & Chem 7: 12/14/19 07:11 12/14/19 07:11 Assessment and Plan (1) Constipation: Status: Acute Assessment and Plan: This is a 54-year-old female who presented to the hospital with complaints of constipation and abdominal pain. She underwent a hemorrhoidectomy on 11/30 and now presents with rectal pain. CT showing significant stool burden. 1. constipation /Stercoral colitis Bowel regiment as recommended by surgery Stop antibiotics, no evidence of infectious process Avoid narcotics Advanced diet 2. microcytic anemia No current evidence of acute blood loss although presumably with her history of hemorrhoids she probably has some rectal bleeding 3. hypertension Stable, continue Norvasc Full Code DVT pptx, lovenox
[2019-12-14 15:50] LABS: Iron 22 mcg/dL (30-160); Percent Iron Saturation 8 % (15-50); Total Iron Binding Capacity 291 mcg/dL (228-428); Unsaturated Iron Binding 269 ug/dL
[2019-12-14] MEDS: Lactated Ringers 500 ML 999 ML IVCONT (21:04)
[2019-12-14] MEDS: Ketorolac Tromethamine 15 MG/ML VIAL IVPUSH (22:19)
--- NOTE | 2019-12-14 22:36 | PC.NURSE ---
At 1999 pt BP 92/58, other vss. Pt c/o headache. Dr Mcwilliams notified. 500 ml bolus LR ordered and administered. BP checked, 90/60. Pt c/o abdominal pain asking for prn morphine. notified. One time dose toradol administered for pain due to low BP. MD aware of BP, LR running at 100 ml/hr. Will continue to monitor.
[2019-12-15] VITALS (9 sets, daily range): BP systolic 92–112; BP diastolic 53–61; PULSE 80–90; RESP 16–20; TEMP 36.4–36.9; O2SAT 96–98
[2019-12-15] MEDS: traMADoL HCL 50 MG TABLET PO ×3 (00:08→14:39)
[2019-12-15] MEDS: Lactated Ringers 1,000 ML 100 ML IVCONT ×2 (04:08→14:38)
[2019-12-15] MEDS: Morphine Sulfate 4 MG/ML CARTRIDGE IVPUSH ×2 (08:27→15:50)
[2019-12-15] MEDS: Milk of Magnesia 30 ML ORAL.SUSP PO (08:27)
[2019-12-15] MEDS: Sucralfate 1 GM TABLET PO ×3 (08:27→17:41)
[2019-12-15] MEDS: Ferrous Sulfate 324 MG TABLET.DR PO ×2 (08:27→17:41)
[2019-12-15] MEDS: Sennosides 8.6 MG TABLET 17.2 MG PO (08:27)
[2019-12-15] MEDS: 0.9 % Sodium Chloride Flush 3 ML SYRINGE IVFLUSH ×2 (08:27→15:51)
[2019-12-15] MEDS: amLODIPine Besylate 5 MG TABLET PO (08:28)
[2019-12-15] MEDS: Docusate Sodium 100 MG CAPSULE PO ×2 (08:28→20:36)
--- NOTE | 2019-12-15 08:46 | PM.PNGS ---
Subjective Subjective Patient reports: still having pain, no bowel movement and blood in stool Interval history: Patient reports continued rectal pain and no bowel movement after taking fleets enema. Physical Exam Vital Signs: Vital Signs: Vital Signs Temp Pulse Resp BP Pulse Ox 12/15/19 08:28 80 102/61 12/15/19 08:27 18 12/15/19 08:02 97.9 F 80 18 102/61 98 12/15/19 04:01 97.5 F 81 16 92/60 96 12/15/19 00:00 97.6 F 85 16 112/61 96 12/14/19 22:00 90/60 12/14/19 20:00 97.7 F 88 18 92/58 L 97 12/14/19 17:18 86 118/65 12/14/19 15:49 98.6 F 87 18 90/54 L 98 12/14/19 12:06 18 12/14/19 11:31 98.0 F 84 18 107/74 98 Body Mass Index 23.1 Const: General: No confusion Orientation/consciousness: No confusion Resp: Other: breathing comfortably on room air, no respiratory distress, able to speak in complete sentences Cardio: Jugular venous distension: no JVD Rate: regular rate Rhythm: regular rhythm GI: Other: soft, mild distention, nontender, normal bowel sounds, rectal examination No evidence of abscess, some stool noted at the anal orifice. Small amount of suture noted as well. No bleeding appreciated. Skin: Other: Warm and dry, no rash Neuro: General: No confusion Progress Note: A&P Assessment and plan (1) Chronic idiopathic constipation: Status: Acute Assessment and Plan: Continued constipation following hemorrhoidectomy. No improvement with fleets enema. Recommend trying soap suds enema today. Again with encourage Sitz baths given the presence of stool at the anal orifice. Fall Risk Details Current Medications: Current Medications Generic Name Dose Route Start Last Admin Trade Name Freq PRN Reason Stop Dose Admin Acetaminophen 650 mg 12/14/19 03:21 Acetaminophen 325 Mg Tablet PO Q6H PRN Pain, Mild (Pain Scale 1-3) Amlodipine Besylate 5 mg 12/14/19 09:00 12/15/19 08:28 Amlodipine Besylate 5 Mg Tablet PO 5 mg DAILY GRANT Administration Protocol Cyclobenzaprine HCl 10 mg 12/14/19 03:21 12/14/19 07:32 Cyclobenzaprine Hcl 10 Mg Tablet PO 10 mg DAILY PRN Administration Muscle Spasm Diazepam 5 mg 12/14/19 03:21 12/14/19 13:36 Diazepam 5 Mg Tablet PO 5 mg TID PRN Administration Anxiety Docusate Sodium 100 mg 12/14/19 09:00 12/15/19 08:28 Docusate Sodium 100 Mg Capsule PO 100 mg BID GRANT Administration Docusate Sodium 100 mg 12/14/19 03:21 Docusate Sodium 100 Mg Capsule PO BID PRN Constipation Ferrous Sulfate 324 mg 12/15/19 08:00 12/15/19 08:27 Ferrous Sulfate 324 Mg Tablet.Dr PO 324 mg BIDWM GRANT Administration Lactated Ringer's 1,000 mls @ 100 mls/hr 12/14/19 06:45 12/15/19 04:08 Lr IVCONT 100 mls/hr .Q10H GRANT Administration Magnesium Hydroxide 30 ml 12/14/19 09:00 12/15/19 08:27 Milk Of Magnesia 30 Ml Oral.Susp PO 30 ml DAILY GRANT Administration Morphine Sulfate 4 mg 12/14/19 03:21 12/15/19 08:27 Morphine Sulfate 4 Mg/Ml Cartridge IVPUSH 4 mg Q4H PRN Administration Pain, Severe (Pain Scale 7-10) Ondansetron HCl 4 mg 12/14/19 03:21 Ondansetron Hcl 4 Mg/2 Ml Vial IVPUSH Q8H PRN Nausea and Vomiting Senna 17.2 mg 12/14/19 09:00 12/15/19 08:27 Sennosides 8.6 Mg Tablet PO 17.2 mg DAILY GRANT Administration Sodium Chloride 3 ml 12/14/19 03:21 12/15/19 08:27 0.9 % Sodium Chloride Flush 3 Ml Syringe IVFLUSH 3 ml QSHIFT GRANT Administration Sucralfate 1 gm 12/14/19 09:00 12/15/19 08:27 Sucralfate 1 Gm Tablet PO 1 gm QID GRANT Administration Tramadol HCl 50 mg 12/14/19 23:59 12/15/19 05:40 Tramadol Hcl 50 Mg Tablet PO 50 mg Q6H PRN Administration Pain, Severe (Pain Scale 7-10) Time Spent With Patient Time: Total time spent is greater than 50% in coordination of care (as documented) at patient's floor/unit and/or counseling patient: Time with patient: less than 15 minutes
--- NOTE | 2019-12-15 09:16 | P.PNIM_ITS ---
Subjective Subjective Date of Service: 12/15/19 Interval History: seen and examined this Am reports abdominal pain improved, but still no BM and no appetite no BM since small one yesterday Review of Systems General - no fevers or chills Cardiovascular - no chest pain Respiratory - no shortness of breath or cough Abdominal- abdominal pain - minimal, ipmroved, nausea, vomiting, constipation Physical Exam Vital Signs: Vital Signs: Vital Signs Temp Pulse Resp BP Pulse Ox 12/15/19 08:28 80 102/61 12/15/19 08:27 18 12/15/19 08:02 97.9 F 80 18 102/61 98 12/15/19 04:01 97.5 F 81 16 92/60 96 12/15/19 00:00 97.6 F 85 16 112/61 96 12/14/19 22:00 90/60 12/14/19 20:00 97.7 F 88 18 92/58 L 97 12/14/19 17:18 86 118/65 12/14/19 15:49 98.6 F 87 18 90/54 L 98 12/14/19 12:06 18 12/14/19 11:31 98.0 F 84 18 107/74 98 Body Mass Index 23.1 General - no acute distress, appears comfortable Cardiovascular - regular rate and rhythm, S1-S2 Lungs - normal respiratory effort, clear to auscultation bilaterally, no wheezing Abdomen - non tender Extremities - no edema bilaterally Neuro - awake and alert, no focal deficits Objective Data Current Medications Generic Name Dose Route Start Last Admin Trade Name Freq PRN Reason Stop Dose Admin Acetaminophen 650 mg 12/14/19 03:21 Acetaminophen 325 Mg Tablet PO Q6H PRN Pain, Mild (Pain Scale 1-3) Amlodipine Besylate 5 mg 12/14/19 09:00 12/15/19 08:28 Amlodipine Besylate 5 Mg Tablet PO 5 mg DAILY GRANT Administration Protocol Bisacodyl 10 mg 12/15/19 09:13 Bisacodyl 10 Mg Supp.Rect AL 12/15/19 09:14 ONCE ONE Cyclobenzaprine HCl 10 mg 12/14/19 03:21 12/14/19 07:32 Cyclobenzaprine Hcl 10 Mg Tablet PO 10 mg DAILY PRN Administration Muscle Spasm Diazepam 5 mg 12/14/19 03:21 12/14/19 13:36 Diazepam 5 Mg Tablet PO 5 mg TID PRN Administration Anxiety Docusate Sodium 100 mg 12/14/19 09:00 12/15/19 08:28 Docusate Sodium 100 Mg Capsule PO 100 mg BID GRANT Administration Docusate Sodium 100 mg 12/14/19 03:21 Docusate Sodium 100 Mg Capsule PO BID PRN Constipation Ferrous Sulfate 324 mg 12/15/19 08:00 12/15/19 08:27 Ferrous Sulfate 324 Mg Tablet.Dr PO 324 mg BIDWM GRANT Administration Lactated Ringer's 1,000 mls @ 100 mls/hr 12/14/19 06:45 12/15/19 04:08 Lr IVCONT 100 mls/hr .Q10H GRANT Administration Magnesium Hydroxide 30 ml 12/14/19 09:00 12/15/19 08:27 Milk Of Magnesia 30 Ml Oral.Susp PO 30 ml DAILY GRANT Administration Morphine Sulfate 4 mg 12/14/19 03:21 12/15/19 08:27 Morphine Sulfate 4 Mg/Ml Cartridge IVPUSH 4 mg Q4H PRN Administration Pain, Severe (Pain Scale 7-10) Ondansetron HCl 4 mg 12/14/19 03:21 Ondansetron Hcl 4 Mg/2 Ml Vial IVPUSH Q8H PRN Nausea and Vomiting Senna 17.2 mg 12/14/19 09:00 12/15/19 08:27 Sennosides 8.6 Mg Tablet PO 17.2 mg DAILY GRANT Administration Sodium Chloride 3 ml 12/14/19 03:21 12/15/19 08:27 0.9 % Sodium Chloride Flush 3 Ml Syringe IVFLUSH 3 ml QSHIFT [facility] Administration Sucralfate 1 gm 12/14/19 09:00 12/15/19 08:27 Sucralfate 1 Gm Tablet PO 1 gm QID [facility] Administration Tramadol HCl 50 mg 12/14/19 23:59 12/15/19 05:40 Tramadol Hcl 50 Mg Tablet PO 50 mg Q6H PRN Administration Pain, Severe (Pain Scale 7-10) Labs CBC & Chem 7: 12/14/19 07:11 12/14/19 07:11 Microbiology Microbiology Results: Microbiology 12/13/19 18:26 Blood - Venous Blood Culture - Preliminary No growth after 24 hours. 12/13/19 18:46 Blood - Venous Blood Culture - Preliminary No growth after 24 hours. Assessment and Plan (1) Constipation: Status: Acute Assessment and Plan: This is a 54-year-old female who presented to the hospital with complaints of constipation and abdominal pain. She underwent a hemorrhoidectomy on 11/30 and now presents with rectal pain. CT showing significant stool burden. 1. constipation /Stercoral colitis Bowel regiment as recommended by surgery, add dulcolax suppository Stop antibiotics, no evidence of infectious process Avoid narcotics Advanced diet 2. microcytic anemia, GIL No current evidence of acute blood loss although presumably with her history of hemorrhoids she probably has some rectal bleeding check h/h - transfuse below 7 iron supplementation 3. hypertension Stable, continue Norvasc 4. HLD lipitor in place of crestor 5. ? GERD vs erosive esophagitis on cafatate, but no PPI -- will start low dose priolose Full Code DVT pptx, mechanical due to significant anemia
--- NOTE | 2019-12-15 10:23 | MHC.CM.PN ---
pt lives c her son in home. she reports that she is independent in her care. her son is able to help her should she need it. this will include a ride home at dc. pt denies the need for vna at dc. dc plan is home no svcs. cm to cont. to follow.
[2019-12-15 10:49] LABS: MANUAL DIFF FLAG NO
[2019-12-15] MEDS: Omeprazole 20 MG CAPSULE.DR PO (10:52)
[2019-12-15] MEDS: bisacodyL 10 MG SUPP.RECT PR (10:52)
[2019-12-15] MEDS: diazePAM 5 MG TABLET PO ×2 (10:58→18:55)
[2019-12-15 11:03] LABS: Eosinophils Absolute Auto 0.1 X10*3/uL (0.0-0.4); Eosinophils Percent Auto 2.4 % (0-4); Hematocrit 27.2 % (37-47); Hemoglobin 8.5 g/dl (12.0-16.0); Imm Gran Abs Auto 0.02 X10*3/uL (0.00-0.03); Imm Gran Pct Auto 0.5 % (0.0-0.4); Lymphocytes Absolute Auto 1.9 X10*3/uL (1.2-4.9); Lymphocytes Percent Auto 45.6 % (20-40); Mean Corpuscular HGB Conc 31.3 g/dl (31.0-35.0); Mean Corpuscular Hemoglobin 24.8 pg (27.0-33.0); Mean Corpuscular Volume 79.3 fL (80-98); Mean Platelet Volume 9.4 fL (9.4-12.3); Monocytes Absolute Auto 0.3 X10*3/uL (0.1-1.2); Monocytes Percent Auto 7.9 % (2-11); Neutrophils Absolute Auto 1.8 X10*3/uL (2.0-8.3); Neutrophils Percent Auto 42.6 % (45-73); Platelet Count 431 X10*3/uL (160-400); Red Blood Count 3.43 X10*6/uL (4.20-5.50); White Blood Count 4.2 X10*3/uL (4.8-10.8)
[2019-12-15 11:41] LABS: Anion Gap 15 (12-20); Blood Urea Nitrogen 8 mg/dL (9-16); Calcium 8.2 mg/dL (8.4-10.2); Carbon Dioxide 26 mmol/L (22-29); Chloride 105 mmol/L (96-108); Creatinine Clr Calc Pharmacy 84.7; Estimated Glomerular Filt Rate > 60; Glucose Random 82 mg/dL (60-115); Potassium 4.6 mmol/l (3.3-5.1); Sodium 141 mmol/L (135-145)
[2019-12-15] MEDS: Atorvastatin Calcium 10 MG TABLET PO (20:36)
--- NOTE | 2019-12-15 22:45 | PC.NURSE ---
per patient report she had small BM today evening
[2019-12-16] VITALS: BP 108/55; PULSE 87; RESP 18; TEMP 37.1; O2SAT 95
[2019-12-16] MEDS: 0.9 % Sodium Chloride Flush 3 ML SYRINGE IVFLUSH (00:13)
[2019-12-16] MEDS: Morphine Sulfate 4 MG/ML CARTRIDGE IVPUSH (00:20)
[2019-12-16] MEDS: Lactated Ringers 1,000 ML 80 ML IVCONT (02:32)
[2019-12-16] MEDS: diazePAM 5 MG TABLET PO (02:56)
[2019-12-16 04:00] VITALS: BP 98/52; PULSE 80; RESP 18; TEMP 36.6; O2SAT 94
[2019-12-16] MEDS: Omeprazole 20 MG CAPSULE.DR PO (06:12)
[2019-12-16 08:00] VITALS: BP 94/50; PULSE 78; RESP 18; TEMP 36.4; O2SAT 98
[2019-12-16] MEDS: Sennosides 8.6 MG TABLET 17.2 MG PO (08:16)
[2019-12-16] MEDS: Ferrous Sulfate 324 MG TABLET.DR PO (08:16)
[2019-12-16] MEDS: Docusate Sodium 100 MG CAPSULE PO (08:16)
[2019-12-16] MEDS: Sucralfate 1 GM TABLET PO (08:16)
[2019-12-16 08:20] VITALS: BP 90/50
[2019-12-16] MEDS: Milk of Magnesia 30 ML ORAL.SUSP PO (08:28)
[2019-12-16 11:19] VITALS: BP 99/58; PULSE 79; RESP 18; TEMP 36.6; O2SAT 97
--- NOTE | 2019-12-16 13:42 | MHC.CM.PN ---
Patient is being discharged home today no services. Taxi voucher given to patient for transport.
--- NOTE | 2019-12-16 13:43 | P.DS_ITS ---
DS: Providers Provider Date of admission: 12/13/19 23:26 Primary care physician: Manuel Beckett MD Consults: 12/14/19 03:21 Consult to Physician Routine Consulting Provider: Etienne Ayala Reason for consultation: Hammerhoidectomy Has provider been notified: No DS: Diagnosis Discharge Diagnosis (1) Constipation: Status: Acute (2) Anemia: Status: Acute DS: Summary Hospital Course Hospital Course: The patient was admitted for abdominal pain due to constipation with concern of stercoral colitis. Ultimately, there was no sign of infection. Surgery was consulted. She was given aggressive bowel regimen to achieve bowel movements. It is recommended that she avoid narcotics. She should follow up with her surgeon as an outpatient. She was started on iron replacement for iron deficiency anemia. FOBT was negative. She should recheck a CBC with differential in 1 month. Time Spent with Patient Time attestation: Total time spent providing and/or coordinating discharge services: 35 Physical Exam Vital Signs: Vital Signs: Vital Signs Temp Pulse Resp BP Pulse Ox 12/16/19 11:19 97.9 F 79 18 99/58 L 97 12/16/19 08:20 90/50 L 12/16/19 08:00 97.6 F 78 18 94/50 L 98 12/16/19 04:00 97.8 F 80 18 98/52 L 94 12/16/19 00:00 98.8 F 87 18 108/55 L 95 12/15/19 19:40 98.3 F 88 18 94/53 L 98 12/15/19 15:26 98.1 F 82 18 97/55 L 96 Body Mass Index 23.1 Const: General: no acute distress Eyes: Conjunctivae: conjunctivae normal, conjunctival abnormal and other Chest: Chest palpation & inspection: normal inspection of the chest Resp: Effort & Inspection: normal respiratory effort Auscultation: clear to auscultation bilaterally Cardio: Rate: regular rate Rhythm: regular rhythm GI: Inspection: Yes normal to inspection Palpation (GI): Soft to palpation and nontender DS: Data Data Completed and Pending Labs on day of discharge: Laboratory Results - last 72 hr 12/13/19 12/13/19 12/13/19 18:26 18:26 18:27 WBC 6.9 RBC 3.41 L Hgb 8.5 L Hct 27.2 L MCV 79.8 L MCH 24.9 L MCHC 31.3 RDW 16.9 H Plt Count 484 H MPV 8.3 L Immature Gran % (Auto) 0.3 Neut % (Auto) 52.7 Lymph % (Auto) 38.0 [place] % (Auto) 6.6 Eos % (Auto) 2.0 Baso % (Auto) 0.4 Lymph # (Auto) 2.6 [place] # (Auto) 0.5 Eos # (Auto) 0.1 Baso # (Auto) 0.0 Abs Immat Gran (auto) 0.02 Absolute Neuts (auto) 3.7 Absolute Nucleated RBC 0.000 Nucleated RBC % (auto) 0.0 PT 13.0 INR 1.1 Sodium Potassium Chloride Carbon Dioxide Anion Gap BUN Creatinine Estim Creat Clear Calc Estimated GFR Random Glucose Lactic Acid Calcium 8.6 Magnesium 2.2 Iron TIBC % Saturation Unsat Iron Binding Ferritin Total Bilirubin Direct Bilirubin AST ALT Alkaline Phosphatase Troponin I High Sens Total Protein Albumin Lipase Stool Occult Blood 12/13/19 12/13/19 12/13/19 18:27 18:27 18:27 WBC RBC Hgb Hct MCV MCH MCHC RDW Plt Count MPV Immature Gran % (Auto) Neut % (Auto) Lymph % (Auto) [place] % (Auto) Eos % (Auto) Baso % (Auto) Lymph # (Auto) [place] # (Auto) Eos # (Auto) Baso # (Auto) Abs Immat Gran (auto) Absolute Neuts (auto) Absolute Nucleated RBC Nucleated RBC % (auto) PT INR Sodium 141 Potassium 3.7 Chloride 104 Carbon Dioxide 26 Anion Gap 15 BUN 14 Creatinine 0.73 Estim Creat Clear Calc 74.3 Estimated GFR > 60 Random Glucose 93 Lactic Acid 0.7 Calcium 8.5 Magnesium Iron TIBC % Saturation Unsat Iron Binding Ferritin Total Bilirubin 0.2 Direct Bilirubin < 0.2 AST 20 ALT 16 Alkaline Phosphatase 104 Troponin I High Sens < 3.5 Total Protein 6.5 Albumin 3.8 Lipase 27 Stool Occult Blood 12/14/19 12/14/19 12/14/19 07:11 07:11 07:11 WBC 5.7 RBC 3.28 L Hgb 8.2 L Hct 26.1 L MCV 79.6 L MCH 25.0 L MCHC 31.4 RDW 16.9 H Plt Count 482 H MPV 8.7 L Immature Gran % (Auto) 0.4 Neut % (Auto) 60.9 Lymph % (Auto) 29.7 [place] % (Auto) 6.7 Eos % (Auto) 1.8 Baso % (Auto) 0.5 Lymph # (Auto) 1.7 [place] # (Auto) 0.4 Eos # (Auto) 0.1 Baso # (Auto) 0.0 Abs Immat Gran (auto) 0.02 Absolute Neuts (auto) 3.5 Absolute Nucleated RBC 0.000 Nucleated RBC % (auto) 0.0 PT INR Sodium 142 Potassium 3.7 Chloride 106 Carbon Dioxide 27 Anion Gap 13 BUN 9 Creatinine 0.68 Estim Creat Clear Calc 79.7 Estimated GFR > 60 Random Glucose 90 Lactic Acid Calcium 8.3 L Magnesium Iron 22 L TIBC 291 % Saturation 8 L Unsat Iron Binding 269 Ferritin 24 Total Bilirubin Direct Bilirubin AST ALT Alkaline Phosphatase Troponin I High Sens Total Protein Albumin Lipase Stool Occult Blood 12/14/19 12/15/19 12/15/19 10:53 10:39 10:39 WBC 4.2 L RBC 3.43 L Hgb 8.5 L Hct 27.2 L MCV 79.3 L MCH 24.8 L MCHC 31.3 RDW 17.0 H Plt Count 431 H MPV 9.4 Immature Gran % (Auto) 0.5 H Neut % (Auto) 42.6 L Lymph % (Auto) 45.6 H [place] % (Auto) 7.9 Eos % (Auto) 2.4 Baso % (Auto) 1.0 Lymph # (Auto) 1.9 [place] # (Auto) 0.3 Eos # (Auto) 0.1 Baso # (Auto) 0.0 Abs Immat Gran (auto) 0.02 Absolute Neuts (auto) 1.8 L Absolute Nucleated RBC 0.000 Nucleated RBC % (auto) 0.0 PT INR Sodium 141 Potassium 4.6 D Chloride 105 Carbon Dioxide 26 Anion Gap 15 BUN 8 L Creatinine 0.64 Estim Creat Clear Calc 84.7 Estimated GFR > 60 Random Glucose 82 Lactic Acid Calcium 8.2 L Magnesium Iron TIBC % Saturation Unsat Iron Binding Ferritin Total Bilirubin Direct Bilirubin AST ALT Alkaline Phosphatase Troponin I High Sens Total Protein Albumin Lipase Stool Occult Blood NEG Discharge Plan Discharge Patient Disposition: Home, Self-Care Referrals: Manuel Beckett MD [Primary Care Provider] - Discharge Medications: New ferrous sulfate 324 mg (65 mg iron) Tablet,Delayed Release (Dr/Ec) 324 mg PO BIDWM 30 Days Qty: 60 RF: 0 magnesium hydroxide [Milk of Magnesia] 400 mg/5 mL Suspension 30 ml PO DAILY 30 Days Qty: 900 RF: 0 Continued sucralfate 1 gram tablet 1 tab PO QID RF: 0 sennosides-docusate sodium 8.6-50 mg tablet 2 tab PO BEDTIME Qty: 60 RF: 0 rosuvastatin 20 mg tablet 20 mg PO BEDTIME RF: 0 sennosides 8.6 mg tablet 17.2 mg PO DAILY RF: 0 diazepam 5 mg tablet 5 mg PO NEEDED PRN (Reason: Anxiety) RF: 0 docusate sodium 100 mg capsule 100 mg PO BID PRN (Reason: Constipation) RF: 0 amlodipine 5 mg tablet 5 mg PO DAILY RF: 0 cyclobenzaprine 10 mg tablet 10 mg PO DAILY PRN (Reason: Muscle Spasm) RF: 0 sucralfate 1 gram tablet 1 g PO QID RF: 0 buprenorphine HCl 150 mcg film 0 mcg PO RF: 0 buprenorphine HCl 75 mcg film 75 mcg PO BID RF: 0 pantoprazole 40 mg tablet,delayed release (DR/EC) 40 mg PO DAILY RF: 0 nitroglycerin 0.4 mg tablet, sublingual 0.4 mg sublingual DAILY RF: 0 isosorbide mononitrate 30 mg tablet extended release 24 hr 30 mg PO QAM RF: 0 aspirin 81 mg tablet,delayed release (DR/EC) PO RF: 0 Changed polyethylene glycol 3350 17 gram powder in packet 17 g PO DAILY Qty: 30 RF: 0 Discontinued oxycodone 5 mg tablet 5 mg PO NEEDED PRN (Reason: Pain (Scale Score 7-10)) RF: 0 oxycodone 5 mg capsule 5 mg PO QID PRNRF: 0 Discharge Orders: Discharge Order (Routine); Ordered 12/16/19 Ordered By: Franci Franco Diet: advance to your usual diet Activity on Discharge: As tolerated Patient Instructions: Constipation (ED), Constipation (DC), Constipation (GEN), Hemorrhoids (ED), Hemorrhoids (DC), Hemorrhoids (GEN) Other Ambulatory Orders: Complete Blood Count Auto Diff (Routine) Timeframe: 1 Month Facility: [facility] - Location: [address]-Lab Ordered By: Franci Franco Visit Report Forms: Patient Portal Discharge page Care Plan Goals: see Plan of Treatment Health Concerns: see Plan of Treatment Plan of Treatment: take stool softeners: Miralax, senna/docusate, and milk of magnesia Sitz baths 4-6 times a day take iron and recheck CBC in 1 month follow up with your primary care doctor and with your surgeon within 1-2 weeks
--- NOTE | 2019-12-16 14:01 | PM.DS ---
DS: Providers Provider Date of admission: 12/13/19 23:26 Primary care physician: Manuel Beckett MD Consults: 12/14/19 03:21 Consult to Physician Routine Consulting Provider: Etienne Ayala Reason for consultation: Hammerhoidectomy Has provider been notified: No DS: Diagnosis Discharge Diagnosis (1) Constipation: Status: Acute (2) Anemia: Status: Acute DS: Summary Hospital Course Hospital Course: The patient was admitted for abdominal pain due to constipation with concern of stercoral colitis. Ultimately, there was no sign of infection. Surgery was consulted. She was given aggressive bowel regimen to achieve bowel movements. It is recommended that she avoid narcotics. She should follow up with her surgeon as an outpatient. She was started on iron replacement for iron deficiency anemia. FOBT was negative. She should recheck a CBC with differential in 1 month. Time Spent with Patient Time attestation: Total time spent providing and/or coordinating discharge services: 35 Quality: VTE VTE Discharge Instructions: Medication action/side effects education, guidance, and counseling Physical Exam Vital Signs: Vital Signs: Vital Signs Temp Pulse Resp BP Pulse Ox 12/16/19 11:19 97.9 F 79 18 99/58 L 97 12/16/19 08:20 90/50 L 12/16/19 08:00 97.6 F 78 18 94/50 L 98 12/16/19 04:00 97.8 F 80 18 98/52 L 94 12/16/19 00:00 98.8 F 87 18 108/55 L 95 12/15/19 19:40 98.3 F 88 18 94/53 L 98 12/15/19 15:26 98.1 F 82 18 97/55 L 96 Body Mass Index 23.1 Const: General: no acute distress Chest: Chest palpation & inspection: normal inspection of the chest Resp: Effort & Inspection: normal respiratory effort Auscultation: clear to auscultation bilaterally Cardio: Rate: regular rate Rhythm: regular rhythm GI: Inspection: Yes normal to inspection Palpation (GI): Soft to palpation and nontender DS: Data Data Completed and Pending Labs on day of discharge: Laboratory Tests 12/13/19 12/13/19 12/13/19 18:26 18:26 18:27 WBC 6.9 RBC 3.41 L Hgb 8.5 L Hct 27.2 L MCV 79.8 L MCH 24.9 L MCHC 31.3 RDW 16.9 H Plt Count 484 H MPV 8.3 L Immature Gran % (Auto) 0.3 Neut % (Auto) 52.7 Lymph % (Auto) 38.0 [place] % (Auto) 6.6 Eos % (Auto) 2.0 Baso % (Auto) 0.4 Lymph # (Auto) 2.6 [place] # (Auto) 0.5 Eos # (Auto) 0.1 Baso # (Auto) 0.0 Abs Immat Gran (auto) 0.02 Absolute Neuts (auto) 3.7 Absolute Nucleated RBC 0.000 Nucleated RBC % (auto) 0.0 PT 13.0 INR 1.1 Sodium Potassium Chloride Carbon Dioxide Anion Gap BUN Creatinine Estim Creat Clear Calc Estimated GFR Random Glucose Lactic Acid Calcium 8.6 Magnesium 2.2 Iron TIBC % Saturation Unsat Iron Binding Ferritin Total Bilirubin Direct Bilirubin AST ALT Alkaline Phosphatase Troponin I High Sens Total Protein Albumin Lipase Stool Occult Blood 12/13/19 12/13/19 12/13/19 18:27 18:27 18:27 WBC RBC Hgb Hct MCV MCH MCHC RDW Plt Count MPV Immature Gran % (Auto) Neut % (Auto) Lymph % (Auto) [place] % (Auto) Eos % (Auto) Baso % (Auto) Lymph # (Auto) [place] # (Auto) Eos # (Auto) Baso # (Auto) Abs Immat Gran (auto) Absolute Neuts (auto) Absolute Nucleated RBC Nucleated RBC % (auto) PT INR Sodium 141 Potassium 3.7 Chloride 104 Carbon Dioxide 26 Anion Gap 15 BUN 14 Creatinine 0.73 Estim Creat Clear Calc 74.3 Estimated GFR > 60 Random Glucose 93 Lactic Acid 0.7 Calcium 8.5 Magnesium Iron TIBC % Saturation Unsat Iron Binding Ferritin Total Bilirubin 0.2 Direct Bilirubin < 0.2 AST 20 ALT 16 Alkaline Phosphatase 104 Troponin I High Sens < 3.5 Total Protein 6.5 Albumin 3.8 Lipase 27 Stool Occult Blood 12/14/19 12/14/19 12/14/19 07:11 07:11 07:11 WBC 5.7 RBC 3.28 L Hgb 8.2 L Hct 26.1 L MCV 79.6 L MCH 25.0 L MCHC 31.4 RDW 16.9 H Plt Count 482 H MPV 8.7 L Immature Gran % (Auto) 0.4 Neut % (Auto) 60.9 Lymph % (Auto) 29.7 [place] % (Auto) 6.7 Eos % (Auto) 1.8 Baso % (Auto) 0.5 Lymph # (Auto) 1.7 [place] # (Auto) 0.4 Eos # (Auto) 0.1 Baso # (Auto) 0.0 Abs Immat Gran (auto) 0.02 Absolute Neuts (auto) 3.5 Absolute Nucleated RBC 0.000 Nucleated RBC % (auto) 0.0 PT INR Sodium 142 Potassium 3.7 Chloride 106 Carbon Dioxide 27 Anion Gap 13 BUN 9 Creatinine 0.68 Estim Creat Clear Calc 79.7 Estimated GFR > 60 Random Glucose 90 Lactic Acid Calcium 8.3 L Magnesium Iron 22 L TIBC 291 % Saturation 8 L Unsat Iron Binding 269 Ferritin 24 Total Bilirubin Direct Bilirubin AST ALT Alkaline Phosphatase Troponin I High Sens Total Protein Albumin Lipase Stool Occult Blood 12/14/19 12/15/19 12/15/19 10:53 10:39 10:39 WBC 4.2 L RBC 3.43 L Hgb 8.5 L Hct 27.2 L MCV 79.3 L MCH 24.8 L MCHC 31.3 RDW 17.0 H Plt Count 431 H MPV 9.4 Immature Gran % (Auto) 0.5 H Neut % (Auto) 42.6 L Lymph % (Auto) 45.6 H [place] % (Auto) 7.9 Eos % (Auto) 2.4 Baso % (Auto) 1.0 Lymph # (Auto) 1.9 [place] # (Auto) 0.3 Eos # (Auto) 0.1 Baso # (Auto) 0.0 Abs Immat Gran (auto) 0.02 Absolute Neuts (auto) 1.8 L Absolute Nucleated RBC 0.000 Nucleated RBC % (auto) 0.0 PT INR Sodium 141 Potassium 4.6 D Chloride 105 Carbon Dioxide 26 Anion Gap 15 BUN 8 L Creatinine 0.64 Estim Creat Clear Calc 84.7 Estimated GFR > 60 Random Glucose 82 Lactic Acid Calcium 8.2 L Magnesium Iron TIBC % Saturation Unsat Iron Binding Ferritin Total Bilirubin Direct Bilirubin AST ALT Alkaline Phosphatase Troponin I High Sens Total Protein Albumin Lipase Stool Occult Blood NEG Discharge Plan Discharge Patient Disposition: Home, Self-Care Referrals: Manuel Beckett MD [Primary Care Provider] - Discharge Medications: New ferrous sulfate 324 mg (65 mg iron) Tablet,Delayed Release (Dr/Ec) 324 mg PO BIDWM 30 Days Qty: 60 RF: 0 magnesium hydroxide [Milk of Magnesia] 400 mg/5 mL Suspension 30 ml PO DAILY 30 Days Qty: 900 RF: 0 Continued sucralfate 1 gram tablet 1 tab PO QID RF: 0 sennosides-docusate sodium 8.6-50 mg tablet 2 tab PO BEDTIME Qty: 60 RF: 0 rosuvastatin 20 mg tablet 20 mg PO BEDTIME RF: 0 sennosides 8.6 mg tablet 17.2 mg PO DAILY RF: 0 diazepam 5 mg tablet 5 mg PO NEEDED PRN (Reason: Anxiety) RF: 0 docusate sodium 100 mg capsule 100 mg PO BID PRN (Reason: Constipation) RF: 0 amlodipine 5 mg tablet 5 mg PO DAILY RF: 0 cyclobenzaprine 10 mg tablet 10 mg PO DAILY PRN (Reason: Muscle Spasm) RF: 0 sucralfate 1 gram tablet 1 g PO QID RF: 0 buprenorphine HCl 150 mcg film 0 mcg PO RF: 0 buprenorphine HCl 75 mcg film 75 mcg PO BID RF: 0 pantoprazole 40 mg tablet,delayed release (DR/EC) 40 mg PO DAILY RF: 0 nitroglycerin 0.4 mg tablet, sublingual 0.4 mg sublingual DAILY RF: 0 isosorbide mononitrate 30 mg tablet extended release 24 hr 30 mg PO QAM RF: 0 aspirin 81 mg tablet,delayed release (DR/EC) PO RF: 0 Changed polyethylene glycol 3350 17 gram powder in packet 17 g PO DAILY Qty: 30 RF: 0 Discontinued oxycodone 5 mg tablet 5 mg PO NEEDED PRN (Reason: Pain (Scale Score 7-10)) RF: 0 oxycodone 5 mg capsule 5 mg PO QID PRNRF: 0 Discharge Orders: Discharge Order (Routine); Ordered 12/16/19 Ordered By: Franci Franco Diet: advance to your usual diet Activity on Discharge: As tolerated Patient Instructions: Constipation (ED), Constipation (DC), Constipation (GEN), Hemorrhoids (ED), Hemorrhoids (DC), Hemorrhoids (GEN) Other Ambulatory Orders: Complete Blood Count Auto Diff (Routine) Timeframe: 1 Month Facility: [facility] - Location: [address] [place] [address] Drive-Lab Ordered By: Franci Franco Visit Report Forms: Patient Portal Discharge page Care Plan Goals: see Plan of Treatment Health Concerns: see Plan of Treatment Plan of Treatment: take stool softeners: Miralax, senna/docusate, and milk of magnesia Sitz baths 4-6 times a day take iron and recheck CBC in 1 month follow up with your primary care doctor and with your surgeon within 1-2 weeks
== END 2019-12-16 14:20 | disposition home or self-care (01) | DRG 254 ==
LOC: HO.ED 23:08 → HO.IMC 12-14 00:11
PROVIDERS: Family Medicine; Nurse Practitioner Family; Admitting Provider Internal Medicine; Emergency Provider Emergency Medicine Emergency Medical Services; PCP Internal Medicine; Visit Provider Family Medicine
DX: K59.00 Constipation, unspecified (principal); D50.9 Iron deficiency anemia, unspecified; I10 Essential (primary) hypertension; Z98.1 Arthrodesis status; Z88.0 Allergy status to penicillin; Z79.82 Long term (current) use of aspirin; Z79.899 Other long term (current) drug therapy
CPT/HCPCS: 36415; 71045; 74177; 80048; 80076; 82272; 82310; 82728; 83540; 83605; 83690; 83735; 84484; 85025; 85610; 87040; 93005; 96361; 96365; 96367; 96375; 96376; 99219; 99284; 99291; J1650; J1885; J1956; J2060; J2270; J2405

== ENCOUNTER → 2019-12-23 15:57 | Outpatient (BNVA) | payer OTHER, SELFPAY | PROVIDERS: PCP Internal Medicine; Referring Provider Internal Medicine; Visit Provider Nurse Practitioner | DX: K59.04 Chronic idiopathic constipation (principal); K21.9 Gastro-esophageal reflux disease without esophagitis; K22.10 Ulcer of esophagus without bleeding; R13.12 Dysphagia, oropharyngeal phase; K52.9 Noninfective gastroenteritis and colitis, unspecified; K64.4 Residual hemorrhoidal skin tags; Z80.0 Family history of malignant neoplasm of digestive organs | CPT/HCPCS: 99214 ==

== ENCOUNTER 2020-07-26 12:27 | Outpatient (REF) | payer OTHER, SELFPAY ==
--- NOTE | ~2020-07-26 | XR_ITS ---
EXAMINATION: XR CHEST CLINICAL INFORMATION: Isn't enlarged lymph nodes. COMPARISON: Chest 12/13/2019 TECHNIQUE: 2 views of the chest were obtained. FINDINGS: No significant abnormality is noted involving the heart, lungs, mediastinum, bony thorax or soft tissues. XR/XR chest 2V IMPRESSION: Unremarkable chest exam
[2020-07-26 14:02] LABS: MANUAL DIFF FLAG NO
[2020-07-26 14:09] LABS: Basophils Percent Auto 0.3 % (0-2); Eosinophils Percent Auto 0.6 % (0-4); Hematocrit 34.1 % (37-47); Hemoglobin 10.7 g/dl (12.0-16.0); Imm Gran Abs Auto 0.01 X10*3/uL (0.00-0.03); Imm Gran Pct Auto 0.2 % (0.0-0.4); Lymphocytes Absolute Auto 2.4 X10*3/uL (1.2-4.9); Lymphocytes Percent Auto 37.4 % (20-40); Mean Corpuscular HGB Conc 31.4 g/dl (31.0-35.0); Mean Corpuscular Volume 82.8 fL (80-98); Mean Platelet Volume 8.7 fL (9.4-12.3); Monocytes Absolute Auto 0.5 X10*3/uL (0.1-1.2); Monocytes Percent Auto 7.1 % (2-11); Neutrophils Absolute Auto 3.5 X10*3/uL (2.0-8.3); Neutrophils Percent Auto 54.4 % (45-73); Platelet Count 446 X10*3/uL (160-400); Red Blood Count 4.12 X10*6/uL (4.20-5.50); Red Cell Distribution Width 16.5 % (11.0-16.0); White Blood Count 6.5 X10*3/uL (4.8-10.8)
[2020-07-26 14:27] LABS: Anion Gap 17 (12-20); Blood Urea Nitrogen 13 mg/dL (9-16); Calcium 9.7 mg/dL (8.4-10.2); Carbon Dioxide 23 mmol/L (22-29); Chloride 104 mmol/L (96-108); Estimated Glomerular Filt Rate > 60; Glucose Random 87 mg/dL (60-115); Potassium 4.4 mmol/L (3.3-5.1); Sodium 140 mmol/L (135-145)
== END 2020-07-26 12:28 | disposition home or self-care (01) ==
LOC: HO.HMGCX 12:27
PROVIDERS: Visit Provider Nurse Practitioner Family
DX: R59.1 Generalized enlarged lymph nodes (principal); R06.02 Shortness of breath
CPT/HCPCS: 36415; 71046; 80048; 85025

== ENCOUNTER 2021-11-12 11:46 | Emergency (ER) | payer OTHER, SELFPAY ==
--- NOTE | ~2021-11-12 | XR_ITS ---
EXAMINATION: XR CHEST CLINICAL INFORMATION: Chest pain. COMPARISON: None TECHNIQUE: Frontal view of the chest was obtained. FINDINGS: No acute abnormality is noted involving the heart, lungs, mediastinum, bony thorax or soft tissues. No infiltrate, effusion, or pneumothorax is appreciated. No lung nodule is seen. Coronary arterial calcification and/or stent placement. Partially imaged lower cervical anterior fixation plate and screws. XR/XR chest 1V IMPRESSION: No acute finding.
[2021-11-12 11:51] VITALS: BP 176/97; PULSE 121; RESP 16; TEMP 36.8; O2SAT 99; BMI 23.0
--- NOTE | 2021-11-12 11:55 | ECG_ITS ---
Test Reason : CHEST PAIN Blood Pressure : / mmHG Vent. Rate : 119 BPM Atrial Rate : 119 BPM P-R Int : 124 ms QRS Dur : 078 ms QT Int : 318 ms P-R-T Axes : 029 022 020 degrees QTc Int : 447 ms Sinus tachycardia Otherwise normal ECG When compared with ECG of 13-DEC-2019 17:57, Heart rate has increased Referred By: Generic ED Physician Electronically Signed By:MICAH HUGHES
[2021-11-12 12:14] LABS: Basophils Percent Auto 0.6 % (0-2); PLT CLUMP 1; SCAN SMEAR FLAG 1
[2021-11-12 12:16] LABS: Eosinophils Absolute Auto 0.2 X10*3/uL (0.0-0.4); Eosinophils Percent Auto 2.3 % (0-4); Imm Gran Abs Auto 0.03 X10*3/uL (0.00-0.03); Imm Gran Pct Auto 0.4 % (0.0-0.4); Lymphocytes Absolute Auto 2.7 X10*3/uL (1.2-4.9); Lymphocytes Percent Auto 37.5 % (20-40); MANUAL DIFF FLAG SCAN; Mean Corpuscular HGB Conc 31.3 g/dl (31.0-35.0); Mean Corpuscular Hemoglobin 25.4 pg (27.0-33.0); Mean Corpuscular Volume 81.4 fL (80.0-98.0); Monocytes Absolute Auto 0.4 X10*3/uL (0.1-1.2); Monocytes Percent Auto 6.1 % (2-11); Neutrophils Absolute Auto 3.8 x10*3/uL (2.0-8.3); Neutrophils Percent Auto 53.1 % (45-73); Red Blood Count 3.93 X10*6/uL (4.20-5.50); White Blood Count 7.1 X10*3/uL (4.8-10.8)
[2021-11-12 12:33] LABS: Anion Gap 21 (12-20); Blood Urea Nitrogen 16 mg/dL (9-16); Calcium 9.7 mg/dL (8.4-10.2); Carbon Dioxide 20 mmol/L (22-29); Chloride 105 mmol/L (96-108); Creatinine Clr Calc Pharmacy 67.8; Estimated Glomerular Filt Rate > 60; Glucose Random 131 mg/dL (60-115); Potassium 4.2 mmol/L (3.3-5.1); Sodium 142 mmol/L (135-145)
[2021-11-12 12:37] LABS: Troponin-I High Sensitivity < 3.5 ng/L (<3.5-17.0)
[2021-11-12 12:45] LABS: Platelet Count 483 X10*3/uL (160-400)
[2021-11-12 12:46] LABS: SLIDE REVIEW VERIFIED
--- NOTE | 2021-11-12 14:04 | ED.CHESTPAIN ---
HPI - Chest Pain General Chief Complaint: Chest Pain Stated Complaint: heart issues Time Seen by Provider: 11/12/21 13:53 Source: patient Mode of arrival: ambulatory Limitations: no limitations History of Present Illness HPI narrative: Patient is a 56 year old female presenting to the emergency department today with left sided chest pain. Patient states that she has been having left sided chest pressure for 3 days. Patient states that she called her school manager, Dr. Medel, who works at [facility] in [place], and he told her to come here. Patient states that she does not want to see the cardiologists here as they missed a heart attack on her once. Patient states that she has a history of a stent after a heart attack.. Patient denies any dizziness, lightheadedness, abdominal pain, nausea, vomiting, fever, chills, blurry vision, double vision, loss of vision, difficulty breathing, shortness of breath, back pain, night sweats, pain with urination, increased urinary frequency, increased urinary urgency, blood in her urine or stool, syncope or a near syncopal episode, recent trauma or falls, bowel incontinence, bladder incontinence, bowel retention, bladder retention, or any other complaints at this time. MD complaint: chest pain Pertinent past history: prior [place] Onset (ago): day(s) (3) Prior episodes: Yes Pain location: left chest Pain radiation: left shoulder Severity: mild Pain scale (0-10): 2 Quality: heaviness Relieving factors: nothing Exacerbating factors: nothing Treatment prior to arrival: none Related Data Home Medications Medication Instructions Recorded Confirmed diazepam 5 mg tablet 5 mg PO NEEDED PRN Anxiety 12/06/19 05/07/20 docusate sodium 100 mg capsule 100 mg PO BID PRN Constipation 12/06/19 05/07/20 rosuvastatin 20 mg tablet 20 mg PO BEDTIME 12/06/19 05/07/20 sucralfate 1 gram tablet 1 tab PO QID 12/13/19 05/07/20 aspirin 81 mg tablet,delayed mg PO 12/16/19 05/07/20 release buprenorphine HCl 75 mcg buccal 75 mcg PO BID 12/16/19 05/07/20 film isosorbide mononitrate 30 mg 30 mg PO QAM 12/16/19 05/07/20 tablet,extended release 24 hr Previous Rx's Medication Instructions Recorded ferrous sulfate 324 mg (65 mg 324 mg PO BIDWM 30 days #60 tabs 12/16/19 iron) tablet,delayed release amlodipine 5 mg tablet 5 mg PO DAILY #30 tabs 02/24/20 sulfamethoxazole 800 1 tab PO BID #14 tabs 05/07/20 mg-trimethoprim 160 mg tablet (Bactrim DS) nitroglycerin 0.4 mg sublingual 0.4 mg sublingual DAILY 30 days 05/19/20 tablet #25 tabs cyclobenzaprine 10 mg tablet 10 mg PO DAILY PRN for muscle 01/07/21 spasm #90 tabs Allergies Allergy/AdvReac Type Severity Reaction Status Date / Time Penicillins Allergy Intermediate Swelling Verified 05/07/20 11:43 acetaminophen [From Tylenol] AdvReac Gastrointestinal Verified 05/07/20 11:43 Upset diazepam [From Valium] AdvReac Drowsy Verified 05/07/20 11:43 zolpidem [From Ambien] AdvReac hallucinate Verified 05/07/20 11:43 Review of Systems Constitutional: Constitutional: Reports no additional constitutional complaints, Denies chills, Denies fever(s) and Denies night sweats Eyes: Eyes: Reports no additional eye complaints, Denies blurry vision, Denies change in vision, Denies diplopia, Denies eye discharge, Denies loss of vision and Denies eye pain ENT: Denies dizziness Cardiovascular: Cardiovascular: Reports no additional cardiovascular complaints, Reports chest pain, Denies lightheadedness, Denies Loss of Consciousness and Denies dyspnea Respiratory: Respiratory: Reports no additional respiratory complaints and Denies dyspnea Gastrointestinal: Gastrointestinal: Reports no additional gastrointestinal complaints, Denies abdominal pain, Denies melena, Denies hematochezia, Denies change in bowel habits and Denies change in stool character Genitourinary: Genitourinary: Denies hematuria, Denies urinary frequency, Denies dysuria, Denies urinary incontinence, Denies urinary hesitancy and Denies urinary urgency Musculoskeletal: Musculoskeletal: Reports no additional musculoskeletal complaints, Denies numbness and Denies tingling Neurologic: Denies dizziness, Denies loss of vision, Denies numbness and Denies tingling Psychiatric: Psychiatric: Reports no additional psychiatric complaints Endocrine: Endocrine: Reports no additional endocrine complaints Hematologic/Lymphatic: Hematologic/Lymphatic: Reports no additional hematologic/lymphatic complaints Allergic/Immunologic: Allergic/Immunologic: Reports no additional allergic/immunologic complaints PMFSH Past Medical History Attestation statement: The following information was validated with the patient. Source: old records reviewed Medical History Adhesion, postoperative Anemia Chronic idiopathic constipation History of CVA (cerebrovascular accident) Myocardial infarction Non Hodgkin's lymphoma Surgical History H/O cardiac catheterization H/O cervical spinal arthrodesis H/O colonoscopy H/O esophagogastroduodenoscopy H/O hemorrhoidectomy History of appendectomy History of heart artery stent Family History Family History Father CAD (coronary artery disease) Lung cancer Diabetes Mother No problems noted. Brother Myocardial infarction Social History Social History Household Members: Significant Other Housing: House Do you presently have visiting nurse or other home services: No Alcohol intake: never Advance Directives: No Advance Directives Information Provided: Yes service: No Current occupational status: unemployed Physical Exam Vital Signs: Vital Signs: Last Vital Signs Temp 98.2 F 11/12/21 11:51 Pulse 101 H 11/12/21 16:45 Resp 20 11/12/21 16:45 BP 148/89 H 11/12/21 16:45 Pulse Ox 99 11/12/21 16:45 O2 Del Method 11/12/21 16:45 BMI result Body Mass Index 23.0 Const: General: cooperative, no acute distress, alert and awake Nutritional Appearance: well nourished Orientation/consciousness: patient oriented x3 Limitations: no limitations HEENT: Head: Yes normal to inspection and Yes atraumatic Ears: hearing grossly normal bilaterally and external ears normal General nose exam: Normal external nose present, no nasal discharge noted and no epistaxis Face and sinus: Yes normal facial exam, No abrasion and No laceration Mouth: Normal oral and palatal mucosa present, no drooling and no muffled voice Eyes: General: appearance normal, both eyes and all related structures Periorbital: periorbital findings normal Eyelids: Yes eyelids normal Conjunctivae: conjunctivae normal Pupils: Equal, round and reactive pupils present EOM: EOMs intact bilaterally Neck: Neck: Yes normal visual inspection, Yes full ROM and Yes no lymphadenopathy Chest: Chest palpation & inspection: normal inspection of the chest Resp: Effort & Inspection: normal respiratory effort and able to speak in complete sentences Auscultation: clear to auscultation bilaterally Cardio: Rate: regular rate Rhythm: regular rhythm GI: Inspection: Yes normal to inspection Neuro: General: patient oriented x3 and moves all extremities Cranial nerves: Yes Equal, round and reactive pupils present Cognition (Neuro): normal cognition Motor exam (neuro): 5/5 motor strength present throughout Sensory Exam: Normal double simultaneous stimulation for sensation Coordination: [id number] test normal Extrem: General: Yes normal to inspection, Yes full ROM and Yes capillary refill normal Psych: Appearance: grossly normal Mental Status: mental status grossly normal Affect: normal affect Attitude: cooperative Thought process: Normal thought process present Thought content: Normal thought content present Insight: Good insight present (Psych) MDM - Chest Pain MDM Narrative Medical decision making narrative: Patient is a 56 year old female presenting to the emergency department today with chest pain. Patient's physical exam was unremarkable. Patient's blood work was unremarkable, including 2 negative troponins. Patient's EKG and repeat EKG were unremarkable. Patient's chest x-ray showed no acute process. I attempted to get ahold of the patient's school manager however, no Dr. nate Medel works in the cardiology department at [facility]. I spoke to Dr. Somers who agreed with the patient being discharged and following up with her PCP and school manager. I explained my physical exam findings as well as all test results to the patient. I answered all questions asked by the patient. I stressed the importance of the patient taking her medication as prescribed. I stressed the importance of the patient following up with her primary care provider and her school manager. I stressed the importance of the patient returning to the emergency department immediately if her symptoms were to worsen or if she were to develop any dizziness, shortness of breath, difficulty breathing, chest pain, blurry vision, loss of vision, nausea, vomiting, abdominal pain, fever, chills, back pain, or any other complaints. Patient verbalized agreement and understanding with this treatment plan and discharge. Differential Diagnosis Differential diagnosis: Likely atypical chest pain Medical Records Data Attestation: I reviewed the patient's medical records. Lab Data Attestation: I reviewed the patient's lab results. Result diagrams: 11/12/21 12:08 11/12/21 12:08 Labs: Lab Results 11/12/21 11/12/21 11/12/21 Range/Units 12:08 12:08 12:08 WBC 7.1 (4.8-10.8) X10*3/uL RBC 3.93 L (4.20-5.50) X10*6/uL Hgb 10.0 L (12.0-16.0) g/dl Hct 32.0 L (37.0-47.0) % MCV 81.4 (80.0-98.0) fL MCH 25.4 L (27.0-33.0) pg MCHC 31.3 (31.0-35.0) g/dl RDW 16.0 (11.0-16.0) % Plt Count 483 H (160-400) X10*3/uL MPV Not Reportable Immature Gran % (Auto) 0.4 (0.0-0.4) % Neut % (Auto) 53.1 (45-73) % Lymph % (Auto) 37.5 (20-40) % [place] % (Auto) 6.1 (2-11) % Eos % (Auto) 2.3 (0-4) % Baso % (Auto) 0.6 (0-2) % Lymph # (Auto) 2.7 (1.2-4.9) X10*3/uL [place] # (Auto) 0.4 (0.1-1.2) X10*3/uL Eos # (Auto) 0.2 (0.0-0.4) X10*3/uL Baso # (Auto) 0.0 (0.0-0.2) X10*3/uL Abs Immat Gran (auto) 0.03 (0.00-0.03) X10*3/uL Absolute Neuts (auto) 3.8 (2.0-8.3) x10*3/uL Absolute Nucleated RBC 0.000 (0.0-0.012) X10*3/uL Nucleated RBC % (auto) 0.0 (0.0-0.2) /100WBC Smear Tech's Comments VERIFIED D-Dimer High Sensitivty NG/ML Sodium 142 (135-145) mmol/L Potassium 4.2 (3.3-5.1) mmol/L Chloride 105 (96-108) mmol/L Carbon Dioxide 20 L (22-29) mmol/L Anion Gap 21 H (12-20) BUN 16 (9-16) mg/dL Creatinine 0.78 (0.5-1.4) mg/dL Estim Creat Clear Calc 67.8 Estimated GFR > 60 Random Glucose 131 H (60-115) mg/dL Calcium 9.7 (8.4-10.2) mg/dL Troponin I High Sens < 3.5 (<3.5-17.0) ng/L 11/12/21 11/12/21 Range/Units 14:53 16:16 WBC (4.8-10.8) X10*3/uL RBC (4.20-5.50) X10*6/uL Hgb (12.0-16.0) g/dl Hct (37.0-47.0) % MCV (80.0-98.0) fL MCH (27.0-33.0) pg MCHC (31.0-35.0) g/dl RDW (11.0-16.0) % Plt Count (160-400) X10*3/uL MPV Immature Gran % (Auto) (0.0-0.4) % Neut % (Auto) (45-73) % Lymph % (Auto) (20-40) % [place] % (Auto) (2-11) % Eos % (Auto) (0-4) % Baso % (Auto) (0-2) % Lymph # (Auto) (1.2-4.9) X10*3/uL [place] # (Auto) (0.1-1.2) X10*3/uL Eos # (Auto) (0.0-0.4) X10*3/uL Baso # (Auto) (0.0-0.2) X10*3/uL Abs Immat Gran (auto) (0.00-0.03) X10*3/uL Absolute Neuts (auto) (2.0-8.3) x10*3/uL Absolute Nucleated RBC (0.0-0.012) X10*3/uL Nucleated RBC % (auto) (0.0-0.2) /100WBC Smear Tech's Comments D-Dimer High Sensitivty < 150 NG/ML Sodium (135-145) mmol/L Potassium (3.3-5.1) mmol/L Chloride (96-108) mmol/L Carbon Dioxide (22-29) mmol/L Anion Gap (12-20) BUN (9-16) mg/dL Creatinine (0.5-1.4) mg/dL Estim Creat Clear Calc Estimated GFR Random Glucose (60-115) mg/dL Calcium (8.4-10.2) mg/dL Troponin I High Sens < 3.5 (<3.5-17.0) ng/L Imaging Data Chest x-ray: Attestation: I personally reviewed and interpreted this imaging study as follows: My impression: No acute process. Radiologist's impression: EXAMINATION: XR CHEST CLINICAL INFORMATION: Chest pain. COMPARISON: None TECHNIQUE: Frontal view of the chest was obtained. FINDINGS: No acute abnormality is noted involving the heart, lungs, mediastinum, bony thorax or soft tissues. No infiltrate, effusion, or pneumothorax is appreciated. No lung nodule is seen. Coronary arterial calcification and/or stent placement. Partially imaged lower cervical anterior fixation plate and screws. XR/XR chest 1V IMPRESSION: No acute finding. ECG Data ECG #1: Attestation: I personally reviewed and interpreted this ECG as follows: ECG interpretation date: 11/12/21 ECG interpretation time: 11:55 Prior ECG tracings: available for review Interpretation: Vent. Rate: 119 BPM ? ? Atrial Rate: 119 BPM P-R Int: 124 ms? QRS Dur: 078 ms QT Int: 318 ms ? ? ? P-R-T Axes: 029 022 020 degrees QTc Int: 447 ms ? Sinus tachycardia Otherwise normal ECG When compared with ECG of 13-DEC-2019 17:57, Heart rate has increased ? Electronically Signed By:MICAH HERNANDEZ DOCP Dictated By: Micah Hernandez DO Signed By: Electronically signed by Micah Hernandez DO 11/12/21 9534 ECG #2: Attestation: I personally reviewed and interpreted this ECG as follows: ECG interpretation date: 11/12/21 ECG interpretation time: 15:28 Prior ECG tracings: available for review Interpretation: Vent. Rate: 101 BPM ? ? Atrial Rate: 101 BPM P-R Int: 144 ms? QRS Dur: 076 ms QT Int: 338 ms ? ? ? P-R-T Axes: 043 029 028 degrees QTc Int: 438 ms ? Sinus tachycardia Otherwise normal ECG When compared with ECG of 12-NOV-2021 11:55, No significant change was found DD/ 1528 Discharge Plan Discharge Clinical Impression: Chest pain Patient Disposition: Home, Self-Care Instructions: Chest Pain (DC) Additional Instructions: Follow up with your primary care provider and your school manager. Return to the emergency department immediately if your symptoms worsen or if you develop any dizziness, shortness of breath, difficulty breathing, chest pain, blurry vision, loss of vision, nausea, vomiting, abdominal pain, fever, chills, back pain, or any other complaints. Prescriptions: No Action amlodipine 5 mg tablet 5 mg PO DAILY Qty: 30 5RF nitroglycerin 0.4 mg tablet, sublingual 0.4 mg sublingual DAILY 30 Days Qty: 25 3RF cyclobenzaprine 10 mg tablet 10 mg PO DAILY PRN (Reason: for muscle spasm) Qty: 90 1RF sucralfate 1 gram tablet 1 tab PO QID ferrous sulfate 324 mg (65 mg iron) Tablet,Delayed Release (Dr/Ec) 324 mg PO BIDWM 30 Days Qty: 60 0RF sulfamethoxazole-trimethoprim [Bactrim DS] 800-160 mg tablet 1 tab PO BID Qty: 14 0RF rosuvastatin 20 mg tablet 20 mg PO BEDTIME diazepam 5 mg tablet 5 mg PO NEEDED PRN (Reason: Anxiety) docusate sodium 100 mg capsule 100 mg PO BID PRN (Reason: Constipation) buprenorphine HCl 75 mcg film 75 mcg PO BID isosorbide mononitrate 30 mg tablet extended release 24 hr 30 mg PO QAM aspirin 81 mg tablet,delayed release (DR/EC) PO Referrals: [facility] [place] [facility]] (Call to establish and follow up with a primary care provider. If you already have a primary care provider, please follow up with them. ) [facility]] (Call to establish and follow up with a primary care provider. If you already have a primary care provider, please follow up with them. ) [facility] [[facility]] (Call to establish and follow up with a primary care provider. If you already have a primary care provider, please follow up with them. ) Print Language: Japanese
--- NOTE | 2021-11-12 14:18 | ECG_ITS ---
Test Reason : chest pain Blood Pressure : / mmHG Vent. Rate : 101 BPM Atrial Rate : 101 BPM P-R Int : 144 ms QRS Dur : 076 ms QT Int : 338 ms P-R-T Axes : 043 029 028 degrees QTc Int : 438 ms Sinus tachycardia Otherwise normal ECG When compared with ECG of 12-NOV-2021 11:55, No significant change was found Referred By: Li Amaya Electronically Signed By:MICAH HUGHES
[2021-11-12 14:25] VITALS: BP 144/80; PULSE 101; RESP 18; O2SAT 98
[2021-11-12 15:30] LABS: Troponin-I High Sensitivity < 3.5 ng/L (<3.5-17.0)
[2021-11-12 16:45] VITALS: BP 148/89; PULSE 101; RESP 20; O2SAT 99
[2021-11-12 16:53] LABS: D Dimer High Sensitivity < 150 NG/ML
== END 2021-11-12 17:10 | disposition home or self-care (01) ==
PROVIDERS: Physician Assistant Medical; Emergency Provider Internal Medicine
DX: R07.9 Chest pain, unspecified (principal); R00.0 Tachycardia, unspecified; C85.90 Non-Hodgkin lymphoma, unspecified, unspecified site; Z86.73 Personal history of transient ischemic attack (TIA), and cerebral infarction without residual deficits; F17.200 Nicotine dependence, unspecified, uncomplicated; Z79.02 Long term (current) use of antithrombotics/antiplatelets; Z79.82 Long term (current) use of aspirin; Z79.899 Other long term (current) drug therapy
CPT/HCPCS: 36415; 71045; 80048; 84484; 85025; 85379; 93005; 99284

== ENCOUNTER 2022-12-25 15:05 | Emergency (ER) | payer OTHER, SELFPAY ==
--- NOTE | ~2022-12-25 | CT_ITS ---
EXAMINATION: CT HEAD WITHOUT CONTRAST CLINICAL INFORMATION: Head trauma. COMPARISON: Previous head CT October 2017 TECHNIQUE: Contiguous axial imaging was performed from the skull base to vertex without intravenous administration of contrast. This CT examination was performed using dose optimization techniques as appropriate, variously including the following: *Automated exposure control *Adjustment of mA and/or kV according to patient size (this includes techniques or standardized protocols for targeted exams where dose is matched to indication/reason for exam; i.e. extremities or head) *Use of iterative reconstruction technique DLP: 638 mGy-cm FINDINGS: There is no evidence of an extra-axial collection. There is no evidence of intra-axial or extra-axial hemorrhage. The ventricles and extra-axial CSF spaces are appropriate. Bui-white matter differentiation is normal. No mass, mass effect. No skull fracture. Visualized paranasal sinuses, mastoid air cells and middle ears are clear. CT/CT head/brain wo IV con IMPRESSION: Unremarkable exam.
--- NOTE | ~2022-12-25 | CT_ITS ---
EXAMINATION: CT CERVICAL SPINE WITHOUT CONTRAST CLINICAL INFORMATION: Pain. Fall. COMPARISON: Previous CT October 2017 TECHNIQUE: Axial images through the cervical spine without contrast. Sagittal and coronal instructions on the technologist workstation were performed. This CT examination was performed using dose optimization techniques as appropriate, variously including the following: *Automated exposure control *Adjustment of mA and/or kV according to patient size (this includes techniques or standardized protocols for targeted exams where dose is matched to indication/reason for exam; i.e. extremities or head) *Use of iterative reconstruction technique DLP: 256 mGy-cm FINDINGS: Bone alignment is normal. No fracture or dislocation. Postsurgical changes from ACDF at C4-C5 and C5-C6. Mild degenerative spondylosis at C3-C4, C6-C7 and C7-T1. Mild degenerative changes at the C1 dens articulation. Disc spaces are normal. Prevertebral soft tissues are normal. CT/CT cervical spine wo IV con IMPRESSION: No fracture or dislocation. Stable postsurgical changes. Mild degenerative changes. Fleischner guidelines were followed.
--- NOTE | ~2022-12-25 | XR_ITS ---
EXAMINATION: XR CHEST CLINICAL INFORMATION: Chest pain. Fall. COMPARISON: Previous chest x-rays most recent November 2021 TECHNIQUE: 2 views of the chest were obtained. FINDINGS: The cardiac and mediastinal contours are normal. The lungs are clear. No pleural effusion or pneumothorax. Postsurgical changes to the cervical spine XR/XR chest 2V IMPRESSION: Unremarkable examination.
--- NOTE | ~2022-12-25 | CT_ITS ---
EXAMINATION: CT FACIAL BONES WITHOUT CONTRAST CLINICAL INFORMATION: Pain. Jaw injury. Fall. COMPARISON: None available. TECHNIQUE: Axial images through the facial bones without contrast. Sagittal and coronal reconstructions on the technologist workstation were performed. This CT examination was performed using dose optimization techniques as appropriate, variously including the following: *Automated exposure control *Adjustment of mA and/or kV according to patient size (this includes techniques or standardized protocols for targeted exams where dose is matched to indication/reason for exam; i.e. extremities or head) *Use of iterative reconstruction technique DLP: 2 79 mGy-cm FINDINGS: No fracture or dislocation. Temporomandibular joints are normal appearing. Visualized paranasal sinuses, mastoid air cells and middle ears are clear. Orbits are normal. Soft tissues are normal CT/CT facial bones wo IV con IMPRESSION: No fracture or dislocation.
--- NOTE | 2022-12-25 15:20 | ED_ITS ---
HPI - General Adult General Chief complaint: General Medical Stated complaint: tooth pain Time Seen by Provider: 12/25/22 16:39 Source: patient Mode of arrival: ambulatory Limitations: no limitations History of Present Illness HPI narrative: 57 yo female with history of CVA, anemia, seizures, non-hodgkins's lymphoma, GERD, hx RI s/p stent x3who presents to the ER for evaluation of right sided facial pain after she fell today. She reports standing next to her car when she felt a headache. Her partner startled her and she states she must have lost her balance and fell down. She hit her face on the car door that was open. She did not fall all the way to the ground or hit her head on concrete. She did not lose consciousness. This occurred at 1230. She states she hit the right side of her face and has had pain in the head, face, jaw since then. She reports pain with opening her mouth all of the way. Upon further questioning patient reports right sided chest pain as well. She cannot recall if it started before or after the fall. It is sharp and nonradiating, constant pain. She feels like her heart is going to come out of my chest because by blood pressure is so high. She states she took her 1 BP med this morning but does not know the name. She also thinks she is on a blood thinner for her heart but does not know the name. She has had memory issues lately. She lives with her partner of the last 4 years. MD complaint: right sided facial pain s/p fall Onset (ago): hour(s) Location: head, face, mouth and chest Radiation: non-radiation Severity: severe Quality: aching Pain Consistency: constant Relieving factors: none Exacerbating factors: none Associated symptoms: confusion and headaches Treatments prior to arrival: none Related Data Home Medications Medication Instructions Recorded Confirmed diazepam 5 mg tablet 5 mg PO NEEDED PRN Anxiety 12/06/19 05/07/20 docusate sodium 100 mg capsule 100 mg PO BID PRN Constipation 12/06/19 05/07/20 rosuvastatin 20 mg tablet 20 mg PO BEDTIME 12/06/19 05/07/20 sucralfate 1 gram tablet 1 tab PO QID 12/13/19 05/07/20 aspirin 81 mg tablet,delayed mg PO 12/16/19 05/07/20 release buprenorphine HCl 75 mcg buccal 75 mcg PO BID 12/16/19 05/07/20 film isosorbide mononitrate 30 mg 30 mg PO QAM 12/16/19 05/07/20 tablet,extended release 24 hr Previous Rx's Medication Instructions Recorded ferrous sulfate 324 mg (65 mg 324 mg PO BIDWM 30 days #60 tabs 12/16/19 iron) tablet,delayed release amlodipine 5 mg tablet 5 mg PO DAILY #30 tabs 02/24/20 sulfamethoxazole 800 1 tab PO BID #14 tabs 05/07/20 mg-trimethoprim 160 mg tablet (Bactrim DS) nitroglycerin 0.4 mg sublingual 0.4 mg sublingual DAILY 30 days 05/19/20 tablet #25 tabs cyclobenzaprine 10 mg tablet 10 mg PO DAILY PRN for muscle 01/07/21 spasm #90 tabs Allergies Allergy/AdvReac Type Severity Reaction Status Date / Time Penicillins Allergy Intermediate Swelling Verified 05/07/20 11:43 acetaminophen [From Tylenol] AdvReac Gastrointestinal Verified 05/07/20 11:43 Upset diazepam [From Valium] AdvReac Drowsy Verified 05/07/20 11:43 zolpidem [From Ambien] AdvReac hallucinate Verified 05/07/20 11:43 Review of Systems Review of Systems: Yes all other systems are reviewed and are negative [facility] Past Medical History Medical History Adhesion, postoperative Anemia Chronic idiopathic constipation History of CVA (cerebrovascular accident) Myocardial infarction Non Hodgkin's lymphoma Surgical History H/O cardiac catheterization H/O cervical spinal arthrodesis H/O colonoscopy H/O esophagogastroduodenoscopy H/O hemorrhoidectomy History of appendectomy History of heart artery stent Family History Family History Father CAD (coronary artery disease) Lung cancer Diabetes Mother No problems noted. Brother Myocardial infarction Social History Social History Household Members: Significant Other Housing: House Do you presently have visiting nurse or other home services: No Alcohol intake: never Smoked in Last 30 Days: No Advance Directives: No Advance Directives Information Provided: No service: No Current occupational status: unemployed Physical Exam ED Vital Signs: Vital Signs - 24 hr 12/25/22 15:21 12/25/22 17:53 Temperature 97.9 F 98.2 F Pulse Rate 105 H 97 Respiratory Rate 20 18 Blood Pressure 201/117 H 198/101 H Pulse Oximetry 98 98 Oxygen Delivery Method Room Air Room Air BMI result Body Mass Index 22.3 Appearance: Alert. Oriented X3. No acute distress. Head/face: normocephalic, nontender scalp. face is symmetrical without obvious swelling. there is a small yellow ecchymotic area on the right mandible. able to open/close mouth with some discomfort, no malocclusion. nontender maxillary and periorbital areas. no open wounds. Eyes: Pupils equal, round and reactive to light. ENT: normal inspection of the nose, nontender. Pharynx normal. No tonsillar swelling or exudate. Neck: Normal inspection. Neck supple. No midline tenderness. normal ROM CVS: Normal heart rate and rhythm. Pulses normal. right sided chest wall tenderness throughout, no ecchymosis, crepitus Respiratory: No respiratory distress. Breath sounds normal. Abdomen: Soft and nontender. +BS x4. no bruising. Skin: Skin warm and dry. Normal skin color. Normal skin turgor. No rashes. Extremities: No lower extremity edema. No joint swelling. Neuro/psych: Oriented X 3. No motor deficit. No sensory deficit. CN II-XII intact. Normal speech. poor historian. steady gait Course Course Course Narrative: RME performed by Li Amaya PA-C. Patient is a 57 year old assigned female at presenting to the emergency department with facial pain after being hit in the face with a door. Imaging ordered. Patient placed back in the waiting room pending room availability and results. Medical Decision Making Medical Decision Making MDM Narrative: 57 yo female with history of CVA, anemia, seizures, non-hodgkins's lymphoma, GERD, hx RI s/p stent x3who presents to the ER for evaluation of right sided facial pain after she fell and hit her face on a car door today. Initially denied being on anticoagulation but reported to me she was on one - when listed she said maybe eliquis. No record of her picking up any form of anticoagulation on the pharmacy claim list. She is also now reporting right sided chest pain, cannot recall if before or after the fall. BP 200/110. She states she is on 1 BP med now. 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 Moved to treatment room, placed on telemetry. EKG is unremarkable. lab workup pending PO lopressor ordered for BP for now. will reassess. signed out to night provider who will f/u labs and determine dispo Differential Diagnosis Differential Diagnoses: The differential diagnosis associated with the presentation includes facial bone fracture, mandibular fracture, concussion without LOC, possible ICH/SAH chest pain due to HTN urgency, possible ACS, rib contusion, broken rib, pulmonary contusion, doubt dissection or PE Admission/Observation Consideration of admission/observation: Escalation of care including admission/observation considered Independent Interpretation I performed an independent interpretation of an: CT Scan Interpretation: CT scans head/c-spine and facial bones reviewed - no acute fracture or visible edema or brain bleed cxr without any PTX, pneumonia, broken rib, effusion, agree w/ radiology read EKG with normal sinus rhythm, HR 95, CO interval 152, normal QTc, no ST segment elevations or depressions Radiology Impression Discussion of test interpretation with radiology: I have reviewed the radiologist's reading. Radiologist Impression: CT/CT cervical spine wo IV con IMPRESSION: No fracture or dislocation. Stable postsurgical changes. Mild degenerative changes. CT/CT head/brain wo IV con IMPRESSION: Unremarkable exam. CT/CT facial bones wo IV con IMPRESSION: No fracture or dislocation. XR/XR chest 2V IMPRESSION: Unremarkable examination. External Record Review External record reviewed: Prior outpatient labs and Prior outpatient radiology Prescription Management I considered prescription management with: Pain Medication Chronic Conditions Patient?s care impacted by: Hypertension and Other (CVA) Critical Care Time Critical Care Time Critical Care Time: No Discharge Plan Discharge Clinical Impression: Hypertension, Contusion of face Patient Disposition: Still a Patient Instructions: Hypertension (ED), Facial Contusion (ED) Additional Instructions: Your CT scans today did not show any acute injuries Your blood pressure was very elevated in the ER today Recommend close monitoring of your BP at home and following up with your doctor If you develop new or worsening symptoms call 911 or come back to the ER for further evaluation. Prescriptions: No Action amlodipine 5 mg tablet 5 mg PO DAILY Qty: 30 5RF nitroglycerin 0.4 mg tablet, sublingual 0.4 mg sublingual DAILY 30 Days Qty: 25 3RF cyclobenzaprine 10 mg tablet 10 mg PO DAILY PRN (Reason: for muscle spasm) Qty: 90 1RF sucralfate 1 gram tablet 1 tab PO QID ferrous sulfate 324 mg (65 mg iron) Tablet,Delayed Release (Dr/Ec) 324 mg PO BIDWM 30 Days Qty: 60 0RF sulfamethoxazole-trimethoprim [Bactrim DS] 800-160 mg tablet 1 tab PO BID Qty: 14 0RF rosuvastatin 20 mg tablet 20 mg PO BEDTIME diazepam 5 mg tablet 5 mg PO NEEDED PRN (Reason: Anxiety) docusate sodium 100 mg capsule 100 mg PO BID PRN (Reason: Constipation) buprenorphine HCl 75 mcg film 75 mcg PO BID isosorbide mononitrate 30 mg tablet extended release 24 hr 30 mg PO QAM aspirin 81 mg tablet,delayed release (DR/EC) PO
[2022-12-25 15:21] VITALS: BP 201/117; PULSE 105; RESP 20; TEMP 36.6; O2SAT 98; BMI 22.3
--- NOTE | 2022-12-25 17:21 | ECG_ITS ---
Test Reason : CP Blood Pressure : / mmHG Vent. Rate : 095 BPM Atrial Rate : 095 BPM P-R Int : 152 ms QRS Dur : 082 ms QT Int : 358 ms P-R-T Axes : 062 046 047 degrees QTc Int : 449 ms Normal sinus rhythm Nonspecific ST abnormality Lateral leads Abnormal ECG When compared with ECG of 12-NOV-2021 15:28, No significant change was found Referred By: Marsha Tyler Electronically Signed By:JOHN CRUZ MD
[2022-12-25 17:53] VITALS: BP 198/101; PULSE 97; RESP 18; TEMP 36.8; O2SAT 98
--- NOTE | 2022-12-25 17:54 | PC.NURSE ---
This music writer placed pt in room with monitor, EKG done, Attempted IV placement w/ no eval, tech to draw labs.
[2022-12-25] MEDS: Metoprolol Tartrate 50 MG TABLET PO (18:41)
[2022-12-25] MEDS: Ibuprofen 600 MG TABLET PO (18:41)
[2022-12-25 19:10] LABS: MANUAL DIFF FLAG NO
[2022-12-25 19:13] LABS: Basophils Percent Auto 0.5 % (0-2); Eosinophils Percent Auto 0.1 % (0-4); Hematocrit 37.4 % (37.0-47.0); Hemoglobin 12.1 g/dl (12.0-16.0); Imm Gran Abs Auto 0.03 X10*3/uL (0.00-0.03); Imm Gran Pct Auto 0.4 % (0.0-0.4); Lymphocytes Absolute Auto 3.1 X10*3/uL (1.2-4.9); Lymphocytes Percent Auto 38.7 % (20-40); Mean Corpuscular HGB Conc 32.4 g/dl (31.0-35.0); Mean Corpuscular Hemoglobin 27.1 pg (27.0-33.0); Mean Corpuscular Volume 83.7 fL (80.0-98.0); Mean Platelet Volume 8.1 fL (9.4-12.3); Monocytes Absolute Auto 0.4 X10*3/uL (0.1-1.2); Monocytes Percent Auto 4.9 % (2-11); Neutrophils Absolute Auto 4.5 x10*3/uL (2.0-8.3); Neutrophils Percent Auto 55.4 % (45-73); Platelet Count 485 X10*3/uL (160-400); Red Blood Count 4.47 X10*6/uL (4.20-5.50); Red Cell Distribution Width 15.5 % (11.0-16.0); White Blood Count 8.1 X10*3/uL (4.8-10.8)
[2022-12-25 19:29] LABS: Alanine Aminotransferase 9 U/L (0-31); Alkaline Phosphatase 109 U/L (39-117); Anion Gap 18 (12-20); Aspartate Amino Transferase 17 U/L (5-31); Bilirubin Direct 0.1 mg/dL (0.0-0.5); Bilirubin Total 0.3 mg/dL (0.0-1.0); Blood Urea Nitrogen 21 mg/dL (9-16); Calcium 10.3 mg/dL (8.4-10.2); Carbon Dioxide 22 mmol/L (22-29); Chloride 104 mmol/L (96-108); Creatinine Clr Calc Pharmacy 73.6; Estimated Glomerular Filt Rate > 60; Glucose Random 96 mg/dL (60-115); Magnesium 2.1 mg/dL (1.6-2.6); Potassium 3.3 mmol/L (3.3-5.1); Sodium 141 mmol/L (135-145); Total Protein 8.8 g/dL (6.5-8.0)
[2022-12-25 19:36] LABS: Troponin-I High Sensitivity < 2.7 ng/L (<3.5-17.0)
[2022-12-25 19:40] VITALS: BP 148/91; PULSE 96; RESP 16
[2022-12-25 19:58] LABS: Appearance Urine Cloudy; Color Urine Yellow; Glucose Urine UA Negative (Negative); Leukocyte Esterase Urine Moderate (2+) (Negative); Nitrite Urine Negative (Negative); PH 5.5 (5.0-9.0); Specific Gravity - Urine >= 1.030 (1.005-1.025); UMIC TRIGGER UACC YES; Urine Blood Large (3+) (Negative); Urine Ketones 80 mg/dL (Negative); Urine Protein 300 (3+) mg/dL (Neg-Trace)
[2022-12-25 20:01] LABS: Bacteria Urine 3+ (None Seen); RBC Urine >20 /HPF (0-2); UACC Culture Trigger YES
[2022-12-25] MEDS: cefuroxime axetiL 500 MG TABLET PO (20:28)
== END 2022-12-25 20:31 | disposition home or self-care (01) ==
PROVIDERS: Physician Assistant; Emergency Provider Emergency Medicine Emergency Medical Services
DX: S00.83XA Contusion of other part of head, initial encounter (principal); R51.9 Headache, unspecified; M54.2 Cervicalgia; R07.89 Other chest pain; I10 Essential (primary) hypertension; W01.10XA Fall on same level from slipping, tripping and stumbling with subsequent striking against unspecified object, initial encounter; Y93.9 Activity, unspecified; Y92.9 Unspecified place or not applicable; Y99.9 Unspecified external cause status; Z86.73 Personal history of transient ischemic attack (TIA), and cerebral infarction without residual deficits; Z79.899 Other long term (current) drug therapy
CPT/HCPCS: 36415; 70450; 70486; 71046; 72125; 80048; 80076; 81001; 81003; 83735; 84484; 85025; 87086; 93005; 99284